=== PATIENT | male | born 1985 | race Caucasian/White ===

== ENCOUNTER 2017-05-27 13:29 | Emergency (ER) | payer MEDICAID ==
[~2017-05-27] VITALS: Ht 177.8 cm; Wt 99.8 kg
[~2017-05-27 13:29] MED LIST: TESTOSTERONE5 G1 MC; [UNRECOGNIZED DRUG - OTHER]; [UNRECOGNIZED DRUG - OTHER]
[2017-05-27 13:47] VITALS: BP 145/85
--- NOTE | 2017-05-27 13:53 | Emergency Room Report ---
History of Present Illness General Chief Complaint: Earache Source: Patient Present Illness HPI The patient is a 32-year-old male presenting with foreign body in the left ear. He states that he was using headphones and a piece of his ear but remained in the left ear. He denies any pain and denies any change in hearing. This occurred yesterday. He has not tried to remove it himself. He denies any other symptoms Allergies: Coded Allergies: NO KNOWN ALLERGIES (Unverified Allergy, Unknown, 10/15/15) Patient History Past Medical History: see triage record Pertinent Family History: none Reviewed Nursing Documentation: PMH: Agreed, PSxH: Agreed Nursing Documentation-PMH Past Medical History: No History, Except For Hx Cardiac Problems: No - HIV Review of Systems All Other Systems: negative except mentioned in HPI Physical Exam Vital Signs Date Time Temp Pulse Resp B/P Pulse Ox O2 Delivery O2 Flow Rate FiO2 05/27/17 13:38 98.1 100 18 145/85 98 Room Air Sp02 EP Interpretation: reviewed, normal General Appearance: no apparent distress, alert, GCS 15, non-toxic Head: normocephalic, atraumatic Eyes: bilateral eye PERRL, bilateral eye normal inspection ENT: normal pharynx, normal voice, uvula midline, other - L ear there is a rabago , soft earbud cover in the external EAC. Visible without otoscope Neck: full range of motion, supple/symm/no masses Respiratory: chest non-tender, lungs clear, normal breath sounds, speaking full sentences Musculoskeletal: back normal, gait/station normal, normal range of motion, non- tender Neurologic: alert, oriented x3, responsive, motor strength/tone normal, sensory intact, speech normal Psychiatric: judgement/insight normal, memory normal, mood/affect normal, no suicidal/homicidal ideation Skin: normal color, no rash, warm/dry, well hydrated Lymphatic: no adenopathy Medical Decision Making PA Attestation Dr. Peoples is my supervising physician. Patient management was discussed with my supervising physician Diagnostic Impression: Primary Impression: Foreign body of ear, left Qualified Codes: T16.2XXA - Foreign body in left ear, initial encounter ER Course The patient is a 32-year-old male presenting with foreign body in the left ear Differential diagnosis include but not limited to otitis externa, otitis media, mastoiditis, sinusitis, pharyngitis, foreign body, TM perforation, among others PE: NAD There is a posada, soft earbud cover in the left external auditory canal. visible without otoscope. Tweezers used to remove the FB in one attempt. No complications. Upon re- evaluation, EAC has no abrasions. No bleeding. TM intact. No erythema or bulging. The patient is discharged home and will follow up with primary doctor Last Vital Signs Date Time Temp Pulse Resp B/P Pulse Ox O2 Delivery O2 Flow Rate FiO2 05/27/17 13:47 98.1 81 18 145/85 98 Room Air Status: improved Disposition: HOME, SELF-CARE Condition: Improved Patient Instructions: Ear Foreign Body Additional Instructions: I discussed my findings with the patient. All questions and concerns have been answered. Treatment and medication compliance have been addressed. I advised the patient that they need to follow up with PMD in 3-5 days. Return to ED if symptoms worsen, new symptoms arise, or if needed for any reason. Patient verbalized understanding of discharge instructions. MEGAN TONY May 27, 2017 13:53
== END 2017-05-27 14:10 | disposition home or self-care (01) ==
LOC: EMR 13:45
DX: T16.2XXA Foreign body in left ear, initial encounter (principal); X58.XXXA Exposure to other specified factors, initial encounter; Y92.89 Other specified places as the place of occurrence of the external cause
CPT/HCPCS: 10120

== ENCOUNTER 2017-06-04 06:48 | Emergency (ER) | payer MEDICAID ==
[~2017-06-04] VITALS: Ht 172.7 cm; Wt 81.6 kg
[2017-06-04] MEDS ORDERED: Bacitracin Oint UD TOPIC ONE (07:00)
--- NOTE | 2017-06-04 07:04 | Emergency Room Report ---
History of Present Illness General Chief Complaint: Lower Extremity Injury Source: Patient Present Illness HPI Patient is a 32-year-old male who presented after increased the foot pain. The patient gradual onset of symptoms. Patient states that he had been walking for long time and subsequently began having pain to his feet. Patient gradual onset of symptoms. Patient had noted some blistering to the bottom of his feet. He denies any fever. He denies any recent trauma. Allergies: Coded Allergies: NO KNOWN ALLERGIES (Unverified Allergy, Unknown, 10/15/15) Patient History Past Medical History: see triage record Reviewed Nursing Documentation: PMH: Agreed, PSxH: Agreed Nursing Documentation-PMH Hx Cardiac Problems: No - HIV Review of Systems All Other Systems: negative except mentioned in HPI Physical Exam Vital Signs Date Time Temp Pulse Resp B/P Pulse Ox O2 Delivery O2 Flow Rate FiO2 06/04/17 06:54 98.1 80 16 126/70 99 Room Air General Appearance: well appearing, no apparent distress, alert, GCS 15 Head: normocephalic, atraumatic ENT: hearing grossly normal, normal voice Neck: full range of motion, supple Respiratory: no respiratory distress, speaking full sentences Musculoskeletal: normal inspection, back normal, no calf tenderness Neurologic: normal inspection, alert, oriented x3, responsive, resident programs assistant III-XII nml as tested, normal gait Psychiatric: mood/affect normal Skin: other - blistering to feet right greater than left, no surrounding erythema Medical Decision Making Diagnostic Impression: Primary Impression: Blister of foot, right Additional Impression: UTI (urinary tract infection) ER Course Patient presented for foot pain. Differential diagnosis included wasn't limited to blister, trench foot, cellulitis, necrotizing fasciitis among others. Patient's benign exam and does not appear to require any further imaging or laboratory testing at this time.The patient's blisters were dressed with antibiotic ointment. Sterile dressings are applied. Patient was advised to recheck with primary care physician next 2-3 days.Patient is given prescription for Keflex for urinary tract infection Last Vital Signs Date Time Temp Pulse Resp B/P Pulse Ox O2 Delivery O2 Flow Rate FiO2 06/04/17 06:54 98.1 80 16 126/70 99 Room Air Status: improved Disposition: HOME, SELF-CARE Condition: Stable Scripts Cephalexin* (KEFLEX*) 500 Mg Capsule 500 MG ORAL Q6H, #28 CAP 0 Refills Prov: Joel Grandaos 06/04/17 Bacitracin Zinc* (BACITRACIN ZINC*) 1 Each Packet 1 APPLIC TOPIC THREE TIMES A DAY, #30 PACKET Prov: Joel Granados 06/04/17 Joel Granados Jun 04, 2017 07:04
[2017-06-04] MEDS ORDERED: BACITRACIN ZIN1 EACH TOPIC (07:15)
[2017-06-04 08:02] LABS: KETONES,URINE 4+ (NEGATIVE); LEUKOCYTE ESTERASE ,URINE 1+ (NEGATIVE); NITRITE,URINE NEGATIVE (NEGATIVE); PH,URINE 6.5 (4.5-8.0); PROTEIN,URINE 2+ (NEGATIVE); UROBILINOGEN,URINE 1 MG/DL (0.0-1.0)
[2017-06-04 08:03] LABS: APPEARANCE,URINE SLIGHTLY CLOUDY
[2017-06-04 08:17] LABS: BACTERIA,URINE FEW /HPF; MUCUS,URINE MODERATE /LPF (NONE/OCC); RBC,URINE 0-2 /HPF (0 - 0); SQUAMOUS EPITHELIAL CELL,UR OCCASIONAL /LPF (NONE/OCC)
[2017-06-04 08:18] LABS: ICTOTEST NEGATIVE
[2017-06-04] MEDS ORDERED: KEFLEX500 MG ORAL (08:21)
[2017-06-04 08:26] VITALS: BP 140/83
[2017-06-04] MEDS ORDERED: GENVOYA TABLET1 EACH PO (18:26)
[2017-06-04] MEDS ORDERED: CELEXA20 MG ORAL (18:26)
[2017-06-04] MEDS ORDERED: TRILEPTAL600 MG PO (18:26)
[2017-06-04] MEDS ORDERED: RISPERDAL2 MG ORAL (18:26)
[2017-06-05] MEDS ORDERED: CYANOCOBALAMIN (08:24)
[2017-06-05] MEDS ORDERED: ANASTROZOLE1 GM (08:24)
[2017-06-05] MEDS ORDERED: OXCARBAZEPINE (08:24)
[2017-06-05] MEDS ORDERED: FLUOXETINE HCL25 G1 MISC (08:24)
[2017-06-05] MEDS ORDERED: RISPERDAL2 MG ORAL (18:15)
== END 2017-06-04 08:26 | disposition home or self-care (01) ==
LOC: EMR 07:05
DX: S90.821A Blister (nonthermal), right foot, initial encounter (principal); Y93.01 Activity, walking, marching and hiking; Y92.9 Unspecified place or not applicable; N39.0 Urinary tract infection, site not specified
CPT/HCPCS: 81003; 99284; 99285

== ENCOUNTER 2017-06-04 17:02 | Emergency (ER) | payer MEDICAID ==
[~2017-06-04] VITALS: Ht 177.8 cm; Wt 95.3 kg
[~2017-06-04 17:02] MED LIST changes: +BACITRACIN ZIN1 EACH TOPIC; +KEFLEX500 MG ORAL
[2017-06-04] MEDS ORDERED: LORazepam Inj 2mg/ml 1ml IM ONE (17:30)
[2017-06-04] MEDS ORDERED: Haloperidol 5mg/ml Inj IM ONE (17:30)
[2017-06-04] MEDS ORDERED: DiphenhydrAMINE 50mg/ml Inj IM ONE (17:30)
[2017-06-04] MEDS ORDERED: LORazepam Inj 2mg/ml 1ml ONE (17:32)
[2017-06-04] MEDS ORDERED: Haloperidol 5mg/ml Inj ONE (17:32)
[2017-06-04] MEDS ORDERED: DiphenhydrAMINE 50mg/ml Inj ONE (17:32)
[2017-06-04 18:00] VITALS: BP 160/112
[2017-06-04] MEDS ORDERED: TRILEPTAL600 MG PO (18:26)
[2017-06-04] MEDS ORDERED: RISPERDAL2 MG ORAL (18:26)
[2017-06-04] MEDS ORDERED: CELEXA20 MG ORAL (18:26)
[2017-06-04] MEDS ORDERED: GENVOYA TABLET1 EACH PO (18:26)
[2017-06-04 18:45] VITALS: BP 143/84
[2017-06-04 18:49] LABS: BASOPHILS % (AUTO) 1.1 % (0.0-2.0); EOSINOPHILS % (AUTO) 0.1 % (0.0-3.0); LYMPHOCYTES % (AUTO) 16.6 % (20.0-45.0); MEAN CORPUSCULAR HEMOGLOBIN 31.9 PG (27.0-31.0); MEAN CORPUSCULAR HGB CONC 37.4 G/DL (32.0-36.0); MEAN CORPUSCULAR VOLUME 85 FL (80-99); MONOCYTES % (AUTO) 9.5 % (1.0-10.0); NEUTROPHILS % (AUTO) 72.7 % (45.0-75.0); PLATELET COUNT 174 K/UL (150-450); RED BLOOD COUNT 3.86 M/UL (4.70-6.10); RED CELL DISTRIBUTION WIDTH 11.6 % (11.6-14.8); WHITE BLOOD COUNT 5.4 K/UL (4.8-10.8)
[2017-06-04 18:59] LABS: ACETAMINOPHEN < 10 ug/mL (10-30); ALANINE AMINOTRANSFERASE 30 U/L (3-41); ALBUMIN/GLOBULIN RATIO 1.2 (1.0-2.7); ALCOHOL < 10 mg/dL; ANION GAP 15 (5-15); ASPARTATE AMINO TRANSFERASE 66 U/L (5-40); CALCIUM 9.1 mg/dL (8.6-10.2); CARBON DIOXIDE 24 mEQ/L (20-30); CHLORIDE 100 mEQ/L (98-107); GLOMERULAR FILTRATION RATE > 60 mL/min (>60); HEMOLYSIS 2; POTASSIUM 3.2 mEQ/L (3.4-4.9); SODIUM 139 mEQ/L (135-145); TOTAL PROTEIN 7.8 g/dL (6.6-8.7)
--- NOTE | 2017-06-04 20:40 | Emergency Room Report ---
History of Present Illness General Chief Complaint: Behavioral Complaint Source: EMS (MEGAN TONY) Present Illness HPI The patient is a 32-year-old male brought in by ambulance and accompanied by police officers after acting erratically today. EMS states the patient was running around with a baseball bat and hitting police cars. The patient does not provide any information at this time. The medication list that is accompanying the patient states that the patient has a history of seizure disorders, schizophrenia, and HIV. It is unknown if he has been taking his medications. (MEGAN TONY) Allergies: Coded Allergies: NO KNOWN ALLERGIES (Unverified Allergy, Unknown, 10/15/15) Patient History Past Medical History: see triage record Pertinent Family History: none Reviewed Nursing Documentation: PMH: Agreed, PSxH: Agreed (MEGAN TONY) Nursing Documentation-PMH History Of Psychiatric Problem: Yes (MEGAN TONY) Review of Systems All Other Systems: limited (MEGAN TONY.Abiel) Physical Exam Vital Signs Date Time Temp Pulse Resp B/P Pulse Ox O2 Delivery O2 Flow Rate FiO2 06/04/17 16:58 99.1 118 16 160/112 98 Room Air Sp02 EP Interpretation: reviewed, normal General Appearance: no apparent distress, alert, GCS 15, non-toxic Head: normocephalic, atraumatic Eyes: bilateral eye PERRL, bilateral eye normal inspection ENT: hearing grossly normal, normal pharynx, no angioedema, normal voice Neck: full range of motion, supple/symm/no masses Respiratory: chest non-tender, lungs clear, normal breath sounds, speaking full sentences Cardiovascular #1: regular rate, rhythm, no edema Gastrointestinal: normal bowel sounds, non tender, soft, non-distended, no guarding, no rebound Musculoskeletal: back normal, gait/station normal, normal range of motion, non- tender Neurologic: alert, oriented x3, responsive, motor strength/tone normal, sensory intact, speech normal Psychiatric: anxious, other - Pt is delusional Lymphatic: no adenopathy (MEGAN TONY) Medical Decision Making PA Attestation Dr. Rodriguez is my supervising physician. Patient management was discussed with my supervising physician (MEGAN TONY) Diagnostic Impression: Primary Impression: Behavioral disorder Additional Impression: Psychosis Qualified Codes: F23 - Brief psychotic disorder ER Course Patient signed out to me. He was brought in as a 5150 by police shift commander. He has been cooperative through the night. No psychiatric issue. He is medically clear for psychiatric evaluation. (HERNAN ROBERTS M.D.) Last Vital Signs Date Time Temp Pulse Resp B/P Pulse Ox O2 Delivery O2 Flow Rate FiO2 06/04/17 18:45 110 16 99 Room Air 06/04/17 18:45 98.2 143/84 Status: improved (MEGAN TONY) Disposition: XFER TO PSYCH HOSP/UNIT Condition: Stable Signed Out To: Dr. Roberts (MEGAN TONY) Referrals: NON PHYSICIAN (PCP) MEGAN TONY Jun 04, 2017 20:40 HERNAN ROBERTS M.D. Jun 04, 2017 23:36
[2017-06-04 23:30] VITALS: BP 139/75
[2017-06-04 23:37] VITALS: BP 138/75
[2017-06-05] VITALS (7 sets, daily range): BP systolic 131–140; BP diastolic 75–80
[2017-06-05] MEDS ORDERED: CYANOCOBALAMIN (08:24)
[2017-06-05] MEDS ORDERED: OXCARBAZEPINE (08:24)
[2017-06-05] MEDS ORDERED: ANASTROZOLE1 GM (08:24)
[2017-06-05] MEDS ORDERED: FLUOXETINE HCL25 G1 MISC (08:24)
[2017-06-05] MEDS ORDERED: Haloperidol Decanoate 50mg Inj IM ONE (16:15)
--- NOTE | 2017-06-05 16:18 | Consultation ---
History of Present Illness General Chief Complaint: Behavioral Complaint Present Illness HPI 32 yo male with hx of hiv and psychotic d/o. the pt is on probation for three years. the pt has been noncompliant with meds. the father was at his bedside. the pt is currently on 5150 for dto/ the pt was apparently yelling and saying he is going to kill others. during the eval the pt was calm and his father was providing most of the history. the pt is endorsing paranoid ideation. He agreed to haldol dec. the pt denied si/hi. he denied using drugs. he denied having mental illness. the pts father and family are supportive. they would like to move him back to [place] the pt needs family support and close supervision. he lost his car/ the father is looking to hire a entertainment lawyer and transfer his legal issue. [employer] sxs: irritable mood, persecutory delusion. No depressive or manic sxs. Allergies: Coded Allergies: NO KNOWN ALLERGIES (Unverified Allergy, Unknown, 10/15/15) Medication History Scheduled Bacitracin Zinc* (Bacitracin Zinc*), 1 APPLIC TOPIC THREE TIMES A DAY Cephalexin* (Keflex*), 500 MG ORAL Q6H Citalopram Hydrobromide* (Celexa*), 20 MG ORAL DAILY, (Reported) Elviteg/Maya/Emtric/Tenofo Ala (Genvoya Tablet), 1 EACH PO DAILY, (Reported) Oxcarbazepine* (Trileptal*), 300 MG PO BID, (Reported) Risperidone* (Risperdal*), 3 MG ORAL BID, (Reported) Testosterone (Testosterone), 100 ML MC QWEEK, (Reported) [Glenvoya], DAILY, (Reported) [Proxac], 80 MG DAILY, (Reported) Miscellaneous Medications Anastrozole (Anastrozole), (Reported) Fluoxetine (Fluoxetine Hcl), 25 GM MISC, (Reported) [cyanocolabalamine], (Reported) [oxacarbazepine], (Reported) Patient History History Provided By: Patient, Family Member, Medical Record, PMD Healthcare decision maker Resuscitation status Advanced Directive on File Past Medical/Surgical History Past Medical/Surgical History: (1) Acute appendicitis (2) Behavioral change (3) Foreign body of ear, left (4) UTI (urinary tract infection) (5) Blister of foot, right (6) Psychosis (7) Behavioral disorder Review of Systems Psychiatric: Reports: see HPI, prior hx, emotional problems Physical Exam General Appearance: no apparent distress, alert Neurologic: alert, oriented x 3, responsive, depressed affect Last 24 Hour Vital Signs Date Time Temp Pulse Resp B/P (MAP) Pulse Ox O2 Delivery O2 Flow Rate FiO2 06/05/17 12:00 98.0 86 17 131/76 99 Room Air 06/05/17 10:17 97.8 89 16 135/77 97 Room Air 06/05/17 10:16 97.8 06/05/17 07:39 97.8 98 17 139/78 97 Room Air 06/05/17 05:30 97.9 98 18 139/78 99 Room Air 06/05/17 03:30 98.0 95 14 135/75 97 Room Air 06/05/17 01:30 98.0 101 15 140/80 98 Room Air 06/04/17 23:30 98.1 102 18 139/75 99 Room Air 06/04/17 18:45 110 16 99 Room Air 06/04/17 18:45 98.2 110 16 143/84 99 Room Air 06/04/17 18:00 118 16 98 Room Air 06/04/17 16:58 99.1 118 16 160/112 98 Room Air Laboratory Tests Test 06/04/17 18:27 06/04/17 19:23 White Blood Count 5.4 K/UL (4.8-10.8) Red Blood Count 3.86 M/UL (4.70-6.10) L Hemoglobin 12.3 G/DL (14.2-18.0) L Hematocrit 32.9 % (42.0-52.0) L Mean Corpuscular Volume 85 FL (80-99) Mean Corpuscular Hemoglobin 31.9 PG (27.0-31.0) H Mean Corpuscular Hemoglobin Concent 37.4 G/DL (32.0-36.0) H Red Cell Distribution Width 11.6 % (11.6-14.8) Platelet Count 174 K/UL (150-450) Mean Platelet Volume 9.0 FL (6.5-10.1) Neutrophils (%) (Auto) 72.7 % (45.0-75.0) Lymphocytes (%) (Auto) 16.6 % (20.0-45.0) L Monocytes (%) (Auto) 9.5 % (1.0-10.0) Eosinophils (%) (Auto) 0.1 % (0.0-3.0) Basophils (%) (Auto) 1.1 % (0.0-2.0) Sodium Level 139 mEQ/L (135-145) Potassium Level 3.2 mEQ/L (3.4-4.9) L Chloride Level 100 mEQ/L (98-107) Carbon Dioxide Level 24 mEQ/L (20-30) Anion Gap 15 (5-15) Blood Urea Nitrogen 16 mg/dL (7-23) Creatinine 1.0 mg/dL (0.7-1.2) Estimat Glomerular Filtration Rate > 60 mL/min (>60) Glucose Level 151 mg/dL (74-106) H Calcium Level 9.1 mg/dL (8.6-10.2) Total Bilirubin 0.6 mg/dL (0.0-1.2) Aspartate Amino Transf (AST/SGOT) 66 U/L (5-40) H Alanine Aminotransferase (ALT/SGPT) 30 U/L (3-41) Alkaline Phosphatase 51 U/L (40-129) Total Protein 7.8 g/dL (6.6-8.7) Albumin 4.3 g/dL (3.5-5.2) Globulin 3.5 g/dL Albumin/Globulin Ratio 1.2 (1.0-2.7) Salicylates Level < 1 mg/dL (10-30) L Acetaminophen Level < 10 ug/mL (10-30) L Serum Alcohol < 10 mg/dL Urine Opiates Screen Negative (NEGATIVE) Urine Barbiturates Screen Negative (NEGATIVE) Phencyclidine (PCP) Screen Negative (NEGATIVE) Urine Amphetamines Screen Negative (NEGATIVE) Urine Benzodiazepines Screen Negative (NEGATIVE) Urine Cocaine Screen Negative (NEGATIVE) Urine Marijuana (THC) Screen Positive (NEGATIVE) H Height (Feet): 5 Height (Inches): 10.00 Weight (Pounds): 210 Assessment/Plan Status: stable Assessment/Plan schizophrenia vs bipolar d/o psychotic fx -haldol dec 25mg IM -risperdal 4mg qhs Tom Rojas M.D. Jun 05, 2017 16:18
[2017-06-05] MEDS ORDERED: fluPHENAZine Decanoate 25mg Inj IM ONE (16:45)
[2017-06-05] MEDS ORDERED: RISPERDAL2 MG ORAL (18:15)
== END 2017-06-05 19:10 | disposition home or self-care (01) ==
LOC: EDBD 17:02 → EMR 18:10
DX: F91.9 Conduct disorder, unspecified (principal); F23 Brief psychotic disorder; F41.9 Anxiety disorder, unspecified; F22 Delusional disorders
CPT/HCPCS: 36415; 80053; 80300; 80329; 85025; 96372; 99285; J1200; J1630; J2680

== ENCOUNTER 2017-07-07 21:01 | Emergency (ER) | payer MEDICAID ==
[~2017-07-07] VITALS: Ht 177.8 cm; Wt 72.6 kg
[~2017-07-07 21:01] MED LIST changes: +ANASTROZOLE1 GM; +CELEXA20 MG ORAL; +CYANOCOBALAMIN; +FLUOXETINE HCL25 G1 MISC; +GENVOYA TABLET1 EACH PO; +OXCARBAZEPINE; +RISPERDAL2 MG ORAL; +TRILEPTAL600 MG PO
[2017-07-07 21:15] VITALS: BP 117/77
--- NOTE | 2017-07-07 21:24 | Emergency Room Report ---
History of Present Illness General Chief Complaint: Abdominal Pain Source: Patient Present Illness HPI Patient presents with abdominal pain vomiting and diarrhea. He thinks he ate something bad today. Yesterday felt well. The diarrhea is been pink in color. He's been drinking coffee to try and calm his stomach. It has been coming back up. He's never had this problem before. He did take some medication but is not telling us what it was. Post appi. H/O HIV - state viral load negative. H/O psychiatric illness (not specific). Denies SI, HI. Mumbling many of his answers but denies most else. Allergies: Coded Allergies: NO KNOWN ALLERGIES (Unverified Allergy, Unknown, 10/15/15) Patient History Past Medical History: see triage record, psych hx, HIV Past Surgical History: appy Social History: Reports: drug use - THC, Denies: alcohol use Social History Narrative at home Reviewed Nursing Documentation: PMH: Agreed, PSxH: Agreed Nursing Documentation-PMH Past Medical History: No Stated History Review of Systems All Other Systems: negative except mentioned in HPI Physical Exam Vital Signs Date Time Temp Pulse Resp B/P (MAP) Pulse Ox O2 Delivery O2 Flow Rate FiO2 07/07/17 21:04 97.3 92 20 151/106 99 Room Air Sp02 EP Interpretation: reviewed, normal General Appearance: well appearing, GCS 15, lethargic, other - RN reports diaphoresis, not present - vomitus withot blood Head: normocephalic Eyes: bilateral eye PERRL, bilateral eye Scleral Injection ENT: moist mucus membranes Neck: supple Respiratory: lungs clear, normal breath sounds Cardiovascular #1: regular rate, rhythm Cardiovascular #2: 2+ radial (R) Gastrointestinal: normal inspection, normal bowel sounds, soft, no mass, non- distended, no guarding, no rebound, tenderness - minimal epigastric Musculoskeletal: back normal, gait/station normal, normal range of motion Neurologic: oriented x3, grossly normal Psychiatric: depressed affect - somewhat lethargic and mumbling words Skin: normal inspection, warm/dry Medical Decision Making Diagnostic Impression: Primary Impression: Abdominal pain Qualified Codes: R10.84 - Generalized abdominal pain ER Course Patient with vomiting and epigastric discomfort without diarrhea. Ddx: GItis, gastritis, food poisoning, adverse reaction to medications, electrolyte abnormality amongst others. Patient without surgical abdominal exam. Some altered mentation. Needs evaluation with labs, abd film. Treatment with IV hydration, zofran and pepcid. Labs with normal WBC, H/H, lytes (glucose slightly elevated). Xray no pathology. Iimproved with hydration and meds. Mariano Po well. patient stable for outpatient observation and treatment Patient with strange affect. Not answer questions directly. Patient purposeful and knows how to get home. (He might have left a dog at ED.) Laboratory Tests Test 07/07/17 21:35 07/07/17 22:40 White Blood Count 7.0 K/UL (4.8-10.8) Red Blood Count 4.26 M/UL (4.70-6.10) L Hemoglobin 13.6 G/DL (14.2-18.0) L Hematocrit 39.6 % (42.0-52.0) L Mean Corpuscular Volume 93 FL (80-99) Mean Corpuscular Hemoglobin 32.0 PG (27.0-31.0) H Mean Corpuscular Hemoglobin Concent 34.5 G/DL (32.0-36.0) Red Cell Distribution Width 14.2 % (11.6-14.8) Platelet Count 239 K/UL (150-450) Mean Platelet Volume 6.5 FL (6.5-10.1) Neutrophils (%) (Auto) 47.4 % (45.0-75.0) Lymphocytes (%) (Auto) 42.8 % (20.0-45.0) Monocytes (%) (Auto) 8.5 % (1.0-10.0) Eosinophils (%) (Auto) 0.3 % (0.0-3.0) Basophils (%) (Auto) 1.0 % (0.0-2.0) Prothrombin Time 9.6 SEC (9.30-11.50) Prothrombin Time INR 0.9 (0.9-1.1) PTT 22 SEC (23-33) L Sodium Level 140 mEQ/L (135-145) Potassium Level 4.0 mEQ/L (3.4-4.9) Chloride Level 100 mEQ/L (98-107) Carbon Dioxide Level 27 mEQ/L (20-30) Anion Gap 13 (5-15) Blood Urea Nitrogen 11 mg/dL (7-23) Creatinine 1.1 mg/dL (0.7-1.2) Estimate Glomerular Filtration Rate > 60 mL/min (>60) Glucose Level 181 mg/dL (74-106) H Calcium Level 8.8 mg/dL (8.6-10.2) Total Bilirubin 0.2 mg/dL (0.0-1.2) Aspartate Amino Transferase (AST) 21 U/L (5-40) Alanine Aminotransferase (ALT) 22 U/L (3-41) Alkaline Phosphatase 82 U/L (40-129) Troponin I < 0.30 ng/mL (<=0.30) Total Protein 7.9 g/dL (6.6-8.7) Albumin 4.3 g/dL (3.5-5.2) Globulin 3.6 g/dL Albumin/Globulin Ratio 1.1 (1.0-2.7) Lipase 30 U/L (< 60) Serum Alcohol < 10 mg/dL Urine Color Pale yellow Urine Appearance Clear Urine pH 6 (4.5-8.0) Urine Specific [place] 1.025 (1.005-1.035) Urine Protein Negative (NEGATIVE) Urine Glucose (UA) Negative (NEGATIVE) Urine Ketones Negative (NEGATIVE) Urine Occult Blood Negative (NEGATIVE) Urine Nitrite Negative (NEGATIVE) Urine Bilirubin Negative (NEGATIVE) Urine Urobilinogen Normal MG/DL (0.0-1.0) Urine Leukocyte Esterase 1+ (NEGATIVE) H Urine RBC 0-2 /HPF (0 - 0) H Urine WBC 0-2 /HPF (0 - 0) Urine Squamous Epithelial Cells None /LPF (NONE/OCC) Urine Bacteria None /HPF (NONE) Urine Opiates Screen Negative (NEGATIVE) Urine Barbiturates Screen Negative (NEGATIVE) Phencyclidine (PCP) Screen Negative (NEGATIVE) Urine Amphetamines Screen Negative (NEGATIVE) Urine Benzodiazepines Screen Negative (NEGATIVE) Urine Cocaine Screen Negative (NEGATIVE) Urine Marijuana (THC) Screen Positive (NEGATIVE) H Other X-Ray Diagnostic Results Other X-Ray Diagnostic Results : X-Ray ordered: Abdomen # of Views/Limited Vs Complete: 1 View Indication: Pain EP Interpretation: Yes Interpretation: nonspecific bowel gas, no sbo, other - No mass Electronically Signed by: Electronically signed by Jose Peoples MD Last Vital Signs Date Time Temp Pulse Resp B/P (MAP) Pulse Ox O2 Delivery O2 Flow Rate FiO2 07/08/17 04:00 97.8 79 16 118/72 100 Room Air Status: improved Disposition: HOME, SELF-CARE Condition: Improved Scripts Acetaminophen (Tylenol) 325 Mg Tablet 650 MG ORAL Q6H Y for Prn Pain/Headache/Temp > 101, #20 TAB 0 Refills Prov: Jose Peoples M.D. 07/08/17 Ondansetron Odt* (ZOFRAN ODT*) 4 Mg Tab.rapdis 4 MG ORAL Q8H Y for Nausea & Vomiting, #6 TAB 1 Refill Prov: Jose Peoples M.D. 07/08/17 Famotidine (PEPCID) 20 Mg Tablet 20 MG ORAL DAILY, #20 TAB 0 Refills Prov: Jose Peoples M.D. 07/08/17 Jose Peoples M.D. Jul 07, 2017 21:24
[2017-07-07] MEDS ORDERED: Famotidine 20 MG/ 2ML VIAL IVP ONE (21:30)
[2017-07-07] MEDS ORDERED: DiphenhydrAMINE 50mg/ml Inj IVP ONE (21:30)
[2017-07-07] MEDS ORDERED: Metoclopramide 10mg/2ml Inj IVP ONE (21:30)
[2017-07-07 21:53] LABS: EOSINOPHILS % (AUTO) 0.3 % (0.0-3.0); LYMPHOCYTES % (AUTO) 42.8 % (20.0-45.0); MEAN CORPUSCULAR HGB CONC 34.5 G/DL (32.0-36.0); MEAN CORPUSCULAR VOLUME 93 FL (80-99); MEAN PLATELET VOLUME 6.5 FL (6.5-10.1); MONOCYTES % (AUTO) 8.5 % (1.0-10.0); NEUTROPHILS % (AUTO) 47.4 % (45.0-75.0); PLATELET COUNT 239 K/UL (150-450); RED BLOOD COUNT 4.26 M/UL (4.70-6.10); RED CELL DISTRIBUTION WIDTH 14.2 % (11.6-14.8)
[2017-07-07 22:03] LABS: INR 0.9 (0.9-1.1); PROTHROMBIN TIME 9.6 SEC (9.30-11.50)
[2017-07-07 22:09] LABS: TROPONIN I < 0.30 ng/mL (<=0.30)
[2017-07-07 22:10] LABS: ALANINE AMINOTRANSFERASE 22 U/L (3-41); ALBUMIN/GLOBULIN RATIO 1.1 (1.0-2.7); ALCOHOL < 10 mg/dL; ANION GAP 13 (5-15); ASPARTATE AMINO TRANSFERASE 21 U/L (5-40); CALCIUM 8.8 mg/dL (8.6-10.2); CARBON DIOXIDE 27 mEQ/L (20-30); CHLORIDE 100 mEQ/L (98-107); CREATININE 1.1 mg/dL (0.7-1.2); GLOMERULAR FILTRATION RATE > 60 mL/min (>60); HEMOLYSIS 5; LIPASE 30 U/L (< 60); SODIUM 140 mEQ/L (135-145); TOTAL PROTEIN 7.9 g/dL (6.6-8.7)
[2017-07-07 22:55] LABS: APPEARANCE,URINE CLEAR; KETONES,URINE NEGATIVE (NEGATIVE); LEUKOCYTE ESTERASE ,URINE 1+ (NEGATIVE); NITRITE,URINE NEGATIVE (NEGATIVE); PH,URINE 6 (4.5-8.0); PROTEIN,URINE NEGATIVE (NEGATIVE); UROBILINOGEN,URINE NORMAL MG/DL (0.0-1.0)
[2017-07-07 23:05] VITALS: BP 120/74
[2017-07-07 23:19] LABS: RBC,URINE 0-2 /HPF (0 - 0); WBC,URINE 0-2 /HPF (0 - 0)
[2017-07-08 01:05] VITALS: BP 125/74
[2017-07-08 03:40] VITALS: BP 118/72
[2017-07-08] MEDS ORDERED: TYLENOL325 MG ORAL (03:40)
[2017-07-08] MEDS ORDERED: ZOFRAN ODT4 MG ORAL (03:40)
[2017-07-08] MEDS ORDERED: PEPCID20 MG ORAL (03:40)
[2017-07-08 04:00] VITALS: BP 118/72
--- NOTE | 2017-07-08 11:17 | Diagnostic Imaging Report ---
Indication: Abdominal pain Technique: Supine view of the abdomen Comparison: none Findings: Bowel gas pattern is unremarkable. No unusual masses or calcifications. Impression: No acute process This agrees with the preliminary interpretation provided by the emergency room physician
== END 2017-07-08 04:00 | disposition home or self-care (01) ==
LOC: EDBD 21:01 → EDUNIT# 21:01 → EMR 22:00
DX: R10.13 Epigastric pain (principal); R11.10 Vomiting, unspecified; R19.7 Diarrhea, unspecified; F12.90 Cannabis use, unspecified, uncomplicated
CPT/HCPCS: 36415; 74000; 80053; 80300; 80329; 81003; 83690; 84484; 85025; 85610; 85730; 96361; 96374; 96375; 99284; J1200; J2765; S0028

== ENCOUNTER 2017-12-09 17:10 | Emergency (ER) | payer MEDICAID ==
[~2017-12-09] VITALS: Ht 172.7 cm; Wt 102.1 kg
[~2017-12-09 17:10] MED LIST changes: +PEPCID20 MG ORAL; +TYLENOL325 MG ORAL; +ZOFRAN ODT4 MG ORAL
[2017-12-09 17:15] VITALS: BP 139/100
[2017-12-09] MEDS ORDERED: DEPAKOTE500 MG PO (17:43)
[2017-12-09] MEDS ORDERED: TRAZODONE HCL50 MG ORAL (17:43)
[2017-12-09] MEDS ORDERED: LORazepam Inj 2mg/ml 1ml IV ONE (17:45)
[2017-12-09 18:21] LABS: BASOPHILS % (AUTO) 0.9 % (0.0-2.0); HEMATOCRIT 40.7 % (42.0-52.0); HEMOGLOBIN 14.1 G/DL (14.2-18.0); MEAN CORPUSCULAR VOLUME 87 FL (80-99); MONOCYTES % (AUTO) 11.3 % (1.0-10.0); NEUTROPHILS % (AUTO) 65.7 % (45.0-75.0); PLATELET COUNT 189 K/UL (150-450); RED BLOOD COUNT 4.65 M/UL (4.70-6.10); WHITE BLOOD COUNT 7.3 K/UL (4.8-10.8)
[2017-12-09 18:31] LABS: ANION GAP 14 mmol/L (5-15); BLOOD UREA NITROGEN 12 mg/dL (7-18); CALCIUM 9.2 MG/DL (8.5-10.1); CARBON DIOXIDE 24 MMOL/L (21-32); CHLORIDE 99 MMOL/L (98-107); CREATININE 0.8 MG/DL (0.55-1.30); POTASSIUM 3.4 MMOL/L (3.5-5.1); SODIUM 137 MMOL/L (136-145)
[2017-12-09 18:35] LABS: ALANINE AMINOTRANSFERASE 27 U/L (12-78); ALBUMIN/GLOBULIN RATIO 0.8 (1.0-2.7); ALKALINE PHOSPHATASE 71 U/L (46-116); ASPARTATE AMINO TRANSFERASE 27 U/L (15-37); BILIRUBIN,TOTAL 0.5 MG/DL (0.2-1.0)
[2017-12-09 18:38] VITALS: BP 135/92
[2017-12-09 19:08] LABS: APPEARANCE,URINE CLEAR; BILIRUBIN, URINE NEGATIVE (NEGATIVE); COLOR,URINE YELLOW; GLUCOSE, URINE (UA) NEGATIVE (NEGATIVE); KETONES,URINE 4+ (NEGATIVE); LEUKOCYTE ESTERASE ,URINE 1+ (NEGATIVE); NITRITE,URINE NEGATIVE (NEGATIVE); PH,URINE 6 (4.5-8.0); PROTEIN,URINE 1+ (NEGATIVE); UROBILINOGEN,URINE 1 MG/DL (0.0-1.0)
--- NOTE | 2017-12-09 21:19 | Emergency Room Report ---
History of Present Illness General Chief Complaint: General Complaint Source: Patient Present Illness HPI 32-year-old male presents ED for evaluation. Patient brought in by EMS stating that he ingested a small amount of bleach today. Also injected bleach into his buttocks. States he did because he is depressed. History of depression. Is currently taking Depakote and trazodone. States he does not feel safe at home. rack worker is with patient at bedside. Is concerned about the patient. Does not believe it is safe for patient be discharged. Denies alcohol or drug use. Denies chest pain or shortness of breath. Denies nausea or vomiting. No other aggravating relieving factors. Denies any other associated symptoms Allergies: Coded Allergies: NO KNOWN ALLERGIES (Unverified Allergy, Unknown, 10/15/15) Patient History Past Medical History: psych hx Past Surgical History: none Pertinent Family History: none Social History: Denies: smoking, alcohol use, drug use Immunizations: UTD Reviewed Nursing Documentation: PMH: Agreed, PSxH: Agreed Nursing Documentation-PMH Hx Cardiac Problems: No - HIV History Of Psychiatric Problem: Yes - depression Review of Systems All Other Systems: negative except mentioned in HPI Physical Exam Vital Signs Date Time Temp Pulse Resp B/P (MAP) Pulse Ox O2 Delivery O2 Flow Rate FiO2 12/09/17 17:06 99.0 130 16 140/90 98 Room Air 99.0 Sp02 EP Interpretation: reviewed, normal General Appearance: no apparent distress, alert, GCS 15, non-toxic Head: normocephalic, atraumatic Eyes: bilateral eye normal inspection, bilateral eye PERRL ENT: hearing grossly normal, normal pharynx, no angioedema, normal voice Neck: full range of motion, supple/symm/no masses Respiratory: chest non-tender, lungs clear, normal breath sounds, speaking full sentences Cardiovascular #1: regular rate, rhythm, no edema Cardiovascular #2: 2+ carotid (R), 2+ carotid (L), 2+ radial (R), 2+ radial (L) , 2+ dorsalis pedis (R), 2+ dorsalis pedis (L) Gastrointestinal: normal bowel sounds, non tender, soft, non-distended, no guarding, no rebound Rectal: deferred Genitourinary: normal inspection, no CVA tenderness Musculoskeletal: back normal, gait/station normal, normal range of motion, non- tender Neurologic: alert, oriented x3, responsive, motor strength/tone normal, sensory intact, speech normal Psychiatric: judgement/insight normal, memory normal, depressed affect, anxious Reflexes: 3+ bicep (R), 3+ bicep (L), 3+ tricep (R), 3+ tricep (L), 3+ knee (R) , 3+ knee (L) Skin: normal color, no rash, warm/dry, well hydrated Lymphatic: no adenopathy Medical Decision Making Diagnostic Impression: Primary Impression: Suicidal ideation Additional Impression: Behavioral change ER Course Hospital Course 32-year-old male presents to ED for suicidal ideation. ingested bleach today Differential diagnoses include: Major depressive disorder, unspecified psychosis , EtOH abuse, drug abuse Clinical course Patient placed on stretcher. On one to one observation. After initial history and physical I ordered labs, U. tox Labs-electrolytes normal, aspirin/Tylenol levels normal, EtOH level normal, U. tox +THC bulbs farmworker at bedside states she does not believe patient is safe to be discharged. Is asking if we can place patient on 5150 hold. Patient is tearful with poor eye contact. Patient is medically cleared and pending psychiatric evaluation. i. I feel this is a highly complex case requiring extensive working including EKG/Rhythm strip, Xray/CT/US, Blood/urine lab work, repeat exams while in ED, and administration of strong opiates/narcotics for pain control, admission to hospital or close patient follow up. Labs Test 12/09/17 18:04 12/09/17 18:30 White Blood Count 7.3 K/UL (4.8-10.8) Red Blood Count 4.65 M/UL (4.70-6.10) Hemoglobin 14.1 G/DL (14.2-18.0) Hematocrit 40.7 % (42.0-52.0) Mean Corpuscular Volume 87 FL (80-99) Mean Corpuscular Hemoglobin 30.3 PG (27.0-31.0) Mean Corpuscular Hemoglobin Concent 34.6 G/DL (32.0-36.0) Red Cell Distribution Width 12.0 % (11.6-14.8) Platelet Count 189 K/UL (150-450) Mean Platelet Volume 6.8 FL (6.5-10.1) Neutrophils (%) (Auto) 65.7 % (45.0-75.0) Lymphocytes (%) (Auto) 22.0 % (20.0-45.0) Monocytes (%) (Auto) 11.3 % (1.0-10.0) Eosinophils (%) (Auto) 0.0 % (0.0-3.0) Basophils (%) (Auto) 0.9 % (0.0-2.0) Sodium Level 137 MMOL/L (136-145) Potassium Level 3.4 MMOL/L (3.5-5.1) Chloride Level 99 MMOL/L (98-107) Carbon Dioxide Level 24 MMOL/L (21-32) Anion Gap 14 mmol/L (5-15) Blood Urea Nitrogen 12 mg/dL (7-18) Creatinine 0.8 MG/DL (0.55-1.30) Estimat Glomerular Filtration Rate > 60 mL/min (>60) Glucose Level 95 MG/DL (74-106) Calcium Level 9.2 MG/DL (8.5-10.1) Total Bilirubin 0.5 MG/DL (0.2-1.0) Aspartate Amino Transf (AST/SGOT) 27 U/L (15-37) Alanine Aminotransferase (ALT/SGPT) 27 U/L (12-78) Alkaline Phosphatase 71 U/L (46-116) Total Protein 8.9 G/DL (6.4-8.2) Albumin 4.0 G/DL (3.4-5.0) Globulin 4.9 g/dL Albumin/Globulin Ratio 0.8 (1.0-2.7) Salicylates Level 3.3 ug/mL (2.8-20) Acetaminophen Level < 2 MCG/ML (10-30) Valproic Acid (Depakene) Level 9 MCG/ML (50-100) Serum Alcohol < 3 mg/dL Urine Color Yellow Urine Appearance Clear Urine pH 6 (4.5-8.0) Urine Specific Duson 1.025 (1.005-1.035) Urine Protein 1+ (NEGATIVE) Urine Glucose (UA) Negative (NEGATIVE) Urine Ketones 4+ (NEGATIVE) Urine Occult Blood Negative (NEGATIVE) Urine Nitrite Negative (NEGATIVE) Urine Bilirubin Negative (NEGATIVE) Urine Urobilinogen 1 MG/DL (0.0-1.0) Urine Leukocyte Esterase 1+ (NEGATIVE) Urine RBC 0-2 /HPF (0 - 0) Urine WBC 2-4 /HPF (0 - 0) Urine Squamous Epithelial Cells None /LPF (NONE/OCC) Urine Bacteria Few /HPF (NONE) Urine Opiates Screen Negative (NEGATIVE) Urine Barbiturates Screen Negative (NEGATIVE) Phencyclidine (PCP) Screen Negative (NEGATIVE) Urine Amphetamines Screen Negative (NEGATIVE) Urine Benzodiazepines Screen Negative (NEGATIVE) Urine Cocaine Screen Negative (NEGATIVE) Urine Marijuana (THC) Screen Positive (NEGATIVE) Last Vital Signs Date Time Temp Pulse Resp B/P (MAP) Pulse Ox O2 Delivery O2 Flow Rate FiO2 12/09/17 18:38 99.0 123 18 135/92 95 Room Air 99.0 Status: improved Disposition: XFER TO PSYCH HOSP/UNIT Condition: Serious Referrals: NON PHYSICIAN (PCP) ALETA ESPITIA M.D. Dec 09, 2017 21:19
[2017-12-09 22:00] VITALS: BP 112/95
[2017-12-10] VITALS (9 sets, daily range): BP systolic 110–152; BP diastolic 67–99
[2017-12-10] MEDS ORDERED: Depakote 500mg tab ORAL ONE (14:15)
[2017-12-10] MEDS ORDERED: Acetaminophen 500mg (ES) tab ORAL ONE (16:00)
== END 2017-12-10 20:35 ==
LOC: EDBD 17:10 → EMR 19:32
DX: T14.91XA Suicide attempt, initial encounter (principal); X83.8XXA Intentional self-harm by other specified means, initial encounter; Y92.9 Unspecified place or not applicable; F91.9 Conduct disorder, unspecified; F32.9 Major depressive disorder, single episode, unspecified
CPT/HCPCS: 36415; 80053; 80164; 80307; 80329; 81003; 85025; 96374; 96375; 99285; J8499

== ENCOUNTER 2018-01-16 12:34 | Inpatient (IN) | payer MEDICAID ==
[~2018-01-16] VITALS: Ht 180.3 cm; Wt 108.9 kg
[~2018-01-16 12:34] MED LIST changes: +DEPAKOTE500 MG PO; +TRAZODONE HCL50 MG ORAL
[2018-01-16] MEDS ORDERED: Pantoprazole Inj IVP ONE (12:45)
[2018-01-16 13:30] LABS: BASOPHILS % (AUTO) 0.5 % (0.0-2.0); EOSINOPHILS % (AUTO) 0.1 % (0.0-3.0); HEMATOCRIT 43.5 % (42.0-52.0); HEMOGLOBIN 14.6 G/DL (14.2-18.0); LYMPHOCYTES % (AUTO) 34.8 % (20.0-45.0); MEAN CORPUSCULAR VOLUME 88 FL (80-99); MONOCYTES % (AUTO) 10.2 % (1.0-10.0); NEUTROPHILS % (AUTO) 54.5 % (45.0-75.0); PLATELET COUNT 171 K/UL (150-450); RED BLOOD COUNT 4.96 M/UL (4.70-6.10); WHITE BLOOD COUNT 4.1 K/UL (4.8-10.8)
[2018-01-16 13:35] LABS: ANION GAP 11 mmol/L (5-15); BLOOD UREA NITROGEN 12 mg/dL (7-18); CALCIUM 8.6 MG/DL (8.5-10.1); CARBON DIOXIDE 24 MMOL/L (21-32); CHLORIDE 101 MMOL/L (98-107); CREATININE 1.3 MG/DL (0.55-1.30); SODIUM 136 MMOL/L (136-145)
[2018-01-16 13:39] LABS: ALANINE AMINOTRANSFERASE 51 U/L (12-78); ALBUMIN 3.9 G/DL (3.4-5.0); ALBUMIN/GLOBULIN RATIO 0.8 (1.0-2.7); ALKALINE PHOSPHATASE 93 U/L (46-116); ASPARTATE AMINO TRANSFERASE 31 U/L (15-37); BILIRUBIN,TOTAL 0.4 MG/DL (0.2-1.0)
[2018-01-16] MEDS ORDERED: Haloperidol 5mg/ml Inj IM ONE (13:45)
[2018-01-16 13:57] VITALS: BP 121/82
--- NOTE | 2018-01-16 14:02 | Emergency Room Report ---
History of Present Illness General Chief Complaint: Gastrointestinal Bleed Source: Patient, EMS Present Illness HPI Patient is a 32-year-old male who presented after increased reported hematemesis. Patient reportedly had been increased vomiting. The patient was having worsening headache. He reports having a moderate amount of blood in his emesis. Patient prior history of psychiatric disease. He denies any abdominal pain. Allergies: Coded Allergies: NO KNOWN ALLERGIES (Unverified Allergy, Unknown, 10/15/15) Patient History Reviewed Nursing Documentation: PMH: Agreed; PSxH: Agreed Nursing Documentation-PMH Past Medical History: No History, Except For Hx Cardiac Problems: No - HIV History Of Psychiatric Problem: Yes - BIPOLAR Review of Systems All Other Systems: limited Physical Exam Vital Signs Date Time Temp Pulse Resp B/P (MAP) Pulse Ox O2 Delivery O2 Flow Rate FiO2 01/16/18 12:26 98.5 140 20 113/77 95 Room Air 98.4 Sp02 EP Interpretation: reviewed, normal General Appearance: normal inspection, well appearing, no apparent distress, alert, GCS 15 Head: atraumatic ENT: normal ENT inspection, hearing grossly normal, normal voice Neck: normal inspection, full range of motion, supple, no bony tend Respiratory: normal inspection, lungs clear, normal breath sounds, no respiratory distress, no retraction, no wheezing Cardiovascular #1: regular rate, rhythm, no edema Gastrointestinal: normal inspection, normal bowel sounds, non tender, soft, no guarding, no hernia Genitourinary: no CVA tenderness Musculoskeletal: normal inspection, back normal, normal range of motion Neurologic: normal inspection, alert, oriented x3, responsive, blind lacer III-XII nml as tested, speech normal Psychiatric: normal inspection, judgement/insight normal, mood/affect normal Skin: normal inspection, normal color, no rash Medical Decision Making Diagnostic Impression: Primary Impression: Abdominal pain Additional Impression: Gastritis ER Course Patient presented for abdominal pain. Differential diagnoses included ischemic bowel, appendicitis, perforated viscus, abdominal aortic aneurysm, inferior myocardial infarction, viral gastroenteritis. Because of complexity of patient' s case laboratory testing and imaging studies were ordered. The patient was given medications for headache as well as for nausea and vomiting.Patient was given IV fluids as well as IV Protonix. Dr. Ledezma was contacted for inpatient management due to complexity of medical condition. CT the head read by radiology showed no evidence of acute intracranial hemorrhage.Initial laboratory testing had adequate hemoglobin. Labs Test 01/16/18 11:13 01/16/18 13:00 Urine Opiates Screen Negative (NEGATIVE) Urine Barbiturates Screen Negative (NEGATIVE) Phencyclidine (PCP) Screen Negative (NEGATIVE) Urine Amphetamines Screen Negative (NEGATIVE) Urine Benzodiazepines Screen Negative (NEGATIVE) Urine Cocaine Screen Negative (NEGATIVE) Urine Marijuana (THC) Screen Positive (NEGATIVE) White Blood Count 4.1 K/UL (4.8-10.8) Red Blood Count 4.96 M/UL (4.70-6.10) Hemoglobin 14.6 G/DL (14.2-18.0) Hematocrit 43.5 % (42.0-52.0) Mean Corpuscular Volume 88 FL (80-99) Mean Corpuscular Hemoglobin 29.4 PG (27.0-31.0) Mean Corpuscular Hemoglobin Concent 33.5 G/DL (32.0-36.0) Red Cell Distribution Width 12.0 % (11.6-14.8) Platelet Count 171 K/UL (150-450) Mean Platelet Volume 6.9 FL (6.5-10.1) Neutrophils (%) (Auto) 54.5 % (45.0-75.0) Lymphocytes (%) (Auto) 34.8 % (20.0-45.0) Monocytes (%) (Auto) 10.2 % (1.0-10.0) Eosinophils (%) (Auto) 0.1 % (0.0-3.0) Basophils (%) (Auto) 0.5 % (0.0-2.0) Prothrombin Time 10.1 SEC (9.30-11.50) Prothromb Time International Ratio 1.0 (0.9-1.1) Activated Partial Thromboplast Time 27 SEC (23-33) Sodium Level 136 MMOL/L (136-145) Potassium Level 4.0 MMOL/L (3.5-5.1) Chloride Level 101 MMOL/L (98-107) Carbon Dioxide Level 24 MMOL/L (21-32) Anion Gap 11 mmol/L (5-15) Blood Urea Nitrogen 12 mg/dL (7-18) Creatinine 1.3 MG/DL (0.55-1.30) Estimat Glomerular Filtration Rate > 60 mL/min (>60) Glucose Level 122 MG/DL (74-106) Calcium Level 8.6 MG/DL (8.5-10.1) Total Bilirubin 0.4 MG/DL (0.2-1.0) Aspartate Amino Transf (AST/SGOT) 31 U/L (15-37) Alanine Aminotransferase (ALT/SGPT) 51 U/L (12-78) Alkaline Phosphatase 93 U/L (46-116) Troponin I 0.000 ng/mL (0.000-0.056) Total Protein 8.9 G/DL (6.4-8.2) Albumin 3.9 G/DL (3.4-5.0) Globulin 5.0 g/dL Albumin/Globulin Ratio 0.8 (1.0-2.7) Serum Alcohol 5 mg/dL EKG Diagnostic Results Rate: normal Rhythm: NSR ST Segments: no acute changes Last Vital Signs Date Time Temp Pulse Resp B/P (MAP) Pulse Ox O2 Delivery O2 Flow Rate FiO2 01/16/18 12:26 98.5 140 20 113/77 95 Room Air 98.4 Status: unchanged Disposition: ADMITTED INPATIENT Condition: Serious Referrals: [facility],REFERR[facility] (PCP) Joel Granados Jan 16, 2018 14:02
--- NOTE | 2018-01-16 14:22 | Diagnostic Imaging Report ---
Indication: Headache Technique: Continuous helical CT scanning of the head was performed utilizing automated exposure control without intravenous contrast material. Axial and coronal reconstructions were obtained. Comparison: None CT dose: Total DLP 1530.91 mGycm; CTDI vol 70.38 mGy Findings: There is no acute intracranial hemorrhage, mass effect or cortical edema. The ventricles, cisterns and sulci are within normal limits. The posterior fossa and fourth ventricle are unremarkable. Sellar and suprasellar regions are grossly unremarkable. Visualized mastoid air cells and paranasal sinuses are unremarkable. No focal lesions of the bony calvarium or soft tissues of the scalp are seen. IMPRESSION: No evidence of acute intracranial hemorrhage, mass effect or cortical edema. MRI may be obtained for more sensitive evaluation as clinically indicated. The CT scanner at [facility] is accredited by the [employer] and the scans are performed using protocols designed to limit radiation exposure to as low as reasonably achievable to attain images of sufficient resolution adequate for diagnostic evaluation.
[2018-01-16] MEDS ORDERED: Morphine Sulfate 4mg/ml Inj IVP ONE (15:15)
[2018-01-16] MEDS ORDERED: Sodium Bicarbonate 50ml Carp IV ONE (15:45)
[2018-01-16] MEDS ORDERED: Heparin 2000 units/Ns 1000ml IV ONE (15:45)
--- NOTE | 2018-01-16 16:28 | Consultation ---
History of Present Illness General Date patient seen: Jan 17, 2018 Chief Complaint: Gastrointestinal Bleed Present Illness HPI 32-year-old male with psychiatric disorder, HIV presented to ER with CC of reported hematemesis. Patient reportedly had been increased vomiting. The patient was having worsening headache. He reports having a moderate amount of blood in his emesis. Allergies: Coded Allergies: NO KNOWN ALLERGIES (Unverified Allergy, Unknown, 10/15/15) Medication History Scheduled Bacitracin Zinc* (Bacitracin Zinc*), 1 APPLIC TOPIC THREE TIMES A DAY Cephalexin* (Keflex*), 500 MG ORAL Q6H Citalopram Hydrobromide* (Celexa*), 20 MG ORAL DAILY, (Reported) Divalproex Sodium (Depakote), 500 MG PO BID, (Reported) Elviteg/Maya/Emtric/Tenofo Ala (Genvoya Tablet), 1 EACH PO DAILY, (Reported) Famotidine (Pepcid), 20 MG ORAL DAILY Oxcarbazepine* (Trileptal*), 300 MG PO BID, (Reported) Risperidone* (Risperdal*), 3 MG ORAL BID, (Reported) Risperidone* (Risperdal*), 4 MG ORAL QHS Testosterone (Testosterone), 100 ML MC QWEEK, (Reported) Trazodone Hcl* (Desyrel*), 50 MG ORAL BEDTIME, (Reported) [Glenvoya], DAILY, (Reported) [Proxac], 80 MG DAILY, (Reported) Scheduled PRN Acetaminophen (Tylenol), 650 MG ORAL Q6H PRN for Prn Pain/Headache/Temp > 101 Ondansetron Odt* (Zofran Odt*), 4 MG ORAL Q8H PRN for Nausea & Vomiting Miscellaneous Medications Anastrozole (Anastrozole), (Reported) Fluoxetine (Fluoxetine Hcl), 25 GM MISC, (Reported) [cyanocolabalamine], (Reported) [oxacarbazepine], (Reported) Patient History Healthcare decision maker N Resuscitation status Advanced Directive on File Past Medical/Surgical History Past Medical/Surgical History: (1) Psychosis (2) HIV disease Review of Systems All Other Systems: negative except mentioned in HPI Physical Exam Last 24 Hour Vital Signs Date Time Temp Pulse Resp B/P (MAP) Pulse Ox O2 Delivery O2 Flow Rate FiO2 01/16/18 13:57 100.0 120 20 121/82 98 Room Air 100.0 01/16/18 12:26 98.5 140 20 113/77 95 Room Air 98.4 Laboratory Tests Test 01/16/18 11:13 01/16/18 13:00 Urine Opiates Screen Negative (NEGATIVE) Urine Barbiturates Screen Negative (NEGATIVE) Phencyclidine (PCP) Screen Negative (NEGATIVE) Urine Amphetamines Screen Negative (NEGATIVE) Urine Benzodiazepines Screen Negative (NEGATIVE) Urine Cocaine Screen Negative (NEGATIVE) Urine Marijuana (THC) Screen Positive (NEGATIVE) H White Blood Count 4.1 K/UL (4.8-10.8) L Red Blood Count 4.96 M/UL (4.70-6.10) Hemoglobin 14.6 G/DL (14.2-18.0) Hematocrit 43.5 % (42.0-52.0) Mean Corpuscular Volume 88 FL (80-99) Mean Corpuscular Hemoglobin 29.4 PG (27.0-31.0) Mean Corpuscular Hemoglobin Concent 33.5 G/DL (32.0-36.0) Red Cell Distribution Width 12.0 % (11.6-14.8) Platelet Count 171 K/UL (150-450) Mean Platelet Volume 6.9 FL (6.5-10.1) Neutrophils (%) (Auto) 54.5 % (45.0-75.0) Lymphocytes (%) (Auto) 34.8 % (20.0-45.0) Monocytes (%) (Auto) 10.2 % (1.0-10.0) H Eosinophils (%) (Auto) 0.1 % (0.0-3.0) Basophils (%) (Auto) 0.5 % (0.0-2.0) Prothrombin Time 10.1 SEC (9.30-11.50) Prothromb Time International Ratio 1.0 (0.9-1.1) Activated Partial Thromboplast Time 27 SEC (23-33) Sodium Level 136 MMOL/L (136-145) Potassium Level 4.0 MMOL/L (3.5-5.1) Chloride Level 101 MMOL/L (98-107) Carbon Dioxide Level 24 MMOL/L (21-32) Anion Gap 11 mmol/L (5-15) Blood Urea Nitrogen 12 mg/dL (7-18) Creatinine 1.3 MG/DL (0.55-1.30) Estimat Glomerular Filtration Rate > 60 mL/min (>60) Glucose Level 122 MG/DL (74-106) H Calcium Level 8.6 MG/DL (8.5-10.1) Total Bilirubin 0.4 MG/DL (0.2-1.0) Aspartate Amino Transf (AST/SGOT) 31 U/L (15-37) Alanine Aminotransferase (ALT/SGPT) 51 U/L (12-78) Alkaline Phosphatase 93 U/L (46-116) Troponin I 0.000 ng/mL (0.000-0.056) Total Protein 8.9 G/DL (6.4-8.2) H Albumin 3.9 G/DL (3.4-5.0) Globulin 5.0 g/dL Albumin/Globulin Ratio 0.8 (1.0-2.7) L Serum Alcohol 5 mg/dL Height (Feet): 5 Height (Inches): 11.00 Weight (Pounds): 255 Assessment/Plan Problem List: (1) GIB (gastrointestinal bleeding) ICD Codes: K92.2 - Gastrointestinal hemorrhage, unspecified SNOMED: 53571567 (2) Abdominal pain ICD Codes: R10.9 - Unspecified abdominal pain SNOMED: 87292036 (3) Psychosis ICD Codes: F29 - Unspecified psychosis not due to a substance or known physiological condition SNOMED: 53831939 (4) HIV disease ICD Codes: B20 - Human immunodeficiency virus [HIV] disease SNOMED: 89163146 Assessment/Plan npo IV fluids check h/h GI evaluation ID evaluation psych evaluation Juve Lennon MD Jan 16, 2018 16:28
[2018-01-16] MEDS ORDERED: Nitroglycerin Subl 0.4mg tab SL PRN (16:30)
[2018-01-16] MEDS ORDERED: LORazepam Inj 2mg/ml 1ml IV PRN (16:30)
[2018-01-16] MEDS ORDERED: Miralax 17gm pkt ORAL PRN (16:30)
[2018-01-16] MEDS ORDERED: Mylanta II UD 30ml ORAL PRN (16:30)
[2018-01-16] MEDS: D5 1/2NS 1,000 ML IV SCH (18:22)
--- NOTE | 2018-01-16 19:33 | History & Physical ---
History and Physical History & Physicial Dictated for Int Med-Dr Ledezma no.[id number]. DOROTHY WOLF Jan 16, 2018 19:33
[2018-01-16] MEDS: Morphine Sulfate 2mg/ml Inj IVP PRN (19:41)
[2018-01-16 20:00] VITALS: BP 112/76
--- NOTE | 2018-01-16 20:45 | History and Physical Report ---
DATE OF ADMISSION: 01/16/2018 CHIEF COMPLAINT: This is a 32-year-old white male who presents with chief complaint "vomiting blood." HISTORY OF PRESENT ILLNESS: The patient was recently admitted to [facility]. The patient was started on multiple psychiatric medications while there. The patient states he began to experience headache yesterday evening on January 15, 2018. This morning, the patient awoke and continued to have a headache. The patient stated he felt achy all over. The patient vomited at home twice. The patient states the emesis had bright red blood in it. The patient presented to [place] emergency room. The patient was admitted for hematemesis to rule out acute upper gastrointestinal hemorrhage. REVIEW OF SYSTEMS: CONSTITUTIONAL: The patient denies weight loss or gain. The patient denies fevers or chills. HEENT: The patient denies ear or throat pain. The patient does complain of headache as above. CARDIOVASCULAR: The patient denies palpitations or chest pain. CHEST: The patient denies wheeze or shortness of breath. ABDOMEN: The patient complains of nausea and vomiting as above. The patient complains of hematemesis as above. The patient denies diarrhea or constipation. GENITOURINARY: The patient denies dysuria or increased frequency of urination. NEUROMUSCULAR: The patient denies seizures or generalized weakness. PAST MEDICAL HISTORY: Significant for: 1. HIV, which was diagnosed in 2004. The patient states his latest HIV viral load was undetectable and his T-cell count was 360. The patient also has diagnosis 2. Bipolar depression. PAST SURGICAL HISTORY: Significant for laparoscopic appendectomy in 2016. CURRENT MEDICATIONS: 1. Celexa 20 mg p.o. daily. 2. Depakote 500 mg p.o. twice daily. 3. Genvoya one tablet p.o. daily. 4. Pepcid 20 mg p.o. daily. 5. Fluoxetine 25 mg p.o. daily. 6. Trileptal 300 mg p.o. twice daily. 7. Risperdal 3 mg p.o. twice daily. 8. Risperdal 4 mg p.o. at bedtime. 9. Trazodone 50 mg p.o. at bedtime. 10. Prozac 80 mg p.o. daily. ALLERGIES: No known drug allergies. SOCIAL HISTORY: The patient is single and is currently unemployed. The patient denies tobacco use. The patient denies alcohol use having quit in 2015. PHYSICAL EXAMINATION: VITAL SIGNS: Temperature 100.0, respirations 20, pulse 120, blood pressure 121/82. GENERAL: The patient is well-developed and well-nourished slightly obese white male, in no apparent distress. HEENT: Pupils equal and responsive to light and accommodation. Extraocular movements are intact. NECK: Supple without lymphadenopathy. CHEST: Lungs are clear to auscultation bilaterally without wheezes or rales. CARDIOVASCULAR: Regular rate. S1 and S2 normal without murmurs, rubs, or gallops. ABDOMEN: Soft, nontender, and nondistended. Positive bowel sounds. No evidence of hepatosplenomegaly. Currently, no rebound or guarding noted. EXTREMITIES: Negative for clubbing, cyanosis, or edema. RECTAL/GENITAL: Deferred. NEUROLOGIC: Cranial nerves II through XII are grossly intact without focal deficits. Motor strength 5/5 bilaterally. Deep tendon reflexes are 2+ plantar. LABORATORY AND DIAGNOSTIC DATA: WBC 4.1, hemoglobin 14.6, hematocrit 42.5, platelets 171,000. Sodium 136, potassium 4.0, chloride 101, CO2 24, BUN 12, creatinine 1.3, and glucose 122. A CT of the brain was reported as within normal limits. ASSESSMENT: This is a 32-year-old white male. 1. Nausea and vomiting. 2. Hematemesis. 3. Probable upper gastrointestinal hemorrhage. 4. Right flank pain. 5. HIV. 6. Bipolar depression. TREATMENT: 1. Hematemesis/nausea/vomiting. A Gastroenterology consultation has been obtained with Dr. Mihir Monique. We will follow recommendation of Gastroenterology. Serial hemoglobins will be performed. 2. HIV. Continue Genvoya as above. 3. Bipolar depression. Psychiatric consultation obtained with Dr. Rojas. Continue psychiatric medications as above. Gerry Palencia M.D. DR: Ericka JOB#: [id number] CC:
[2018-01-16] MEDS: Heparin 5000 units/ml inj SUBQ SCH (21:00)
[2018-01-16] MEDS: Depakote 500mg tab ORAL SCH (21:18)
[2018-01-16] MEDS: TraZODone 50mg tab ORAL SCH (21:18)
[2018-01-16 22:22] LABS: APPEARANCE,URINE CLEAR; BILIRUBIN, URINE NEGATIVE (NEGATIVE); GLUCOSE, URINE (UA) NEGATIVE (NEGATIVE); KETONES,URINE 2+ (NEGATIVE); LEUKOCYTE ESTERASE ,URINE 1+ (NEGATIVE); NITRITE,URINE NEGATIVE (NEGATIVE); PH,URINE 6.5 (4.5-8.0); PROTEIN,URINE 1+ (NEGATIVE); UROBILINOGEN,URINE 1 MG/DL (0.0-1.0)
[2018-01-16 22:23] LABS: COLOR,URINE YELLOW
[2018-01-17] VITALS: BP 99/60
[2018-01-17] MEDS: Morphine Sulfate 2mg/ml Inj IVP PRN ×4 (00:17→14:15)
[2018-01-17 04:00] VITALS: BP 105/69
[2018-01-17] MEDS: D5 1/2NS 1,000 ML IV SCH ×2 (05:59→21:06)
[2018-01-17 07:16] LABS: BASOPHILS % (AUTO) 0.7 % (0.0-2.0); EOSINOPHILS % (AUTO) 0.1 % (0.0-3.0); HEMATOCRIT 38.8 % (42.0-52.0); HEMOGLOBIN 13.2 G/DL (14.2-18.0); LYMPHOCYTES % (AUTO) 39.9 % (20.0-45.0); MEAN CORPUSCULAR VOLUME 88 FL (80-99); MONOCYTES % (AUTO) 13.7 % (1.0-10.0); NEUTROPHILS % (AUTO) 45.6 % (45.0-75.0); PLATELET COUNT 163 K/UL (150-450); RED BLOOD COUNT 4.43 M/UL (4.70-6.10); RED CELL DISTRIBUTION WIDTH 11.7 % (11.6-14.8); WHITE BLOOD COUNT 3.5 K/UL (4.8-10.8)
[2018-01-17 07:37] LABS: ALANINE AMINOTRANSFERASE 38 U/L (12-78); ALBUMIN 3.5 G/DL (3.4-5.0); ALBUMIN/GLOBULIN RATIO 0.7 (1.0-2.7); ALKALINE PHOSPHATASE 80 U/L (46-116); AMYLASE 54 U/L (25-115); ANION GAP 7 mmol/L (5-15); ASPARTATE AMINO TRANSFERASE 22 U/L (15-37); BILIRUBIN,TOTAL 0.5 MG/DL (0.2-1.0); BLOOD UREA NITROGEN 13 mg/dL (7-18); CALCIUM 8.2 MG/DL (8.5-10.1); CARBON DIOXIDE 28 MMOL/L (21-32); CHLORIDE 100 MMOL/L (98-107); CREATININE 1.1 MG/DL (0.55-1.30); POTASSIUM 3.9 MMOL/L (3.5-5.1); SODIUM 135 MMOL/L (136-145)
[2018-01-17 09:00] VITALS: BP 111/72
--- NOTE | 2018-01-17 09:30 | Diagnostic Imaging Report ---
Indication: Abdominal pain Technique: Allen-scale and duplex images of the upper abdomen were obtained Comparison: none Findings: Gallbladder is unremarkable, without stones, wall thickening, nor pericholecystic fluid. Common bile duct measures 3 mm in diameter. No intrahepatic biliary ductal dilatation. Liver demonstrates normal echogenicity, no focal abnormality. Portal vein and hepatic veins are patent. Pancreas is unremarkable. Spleen is unremarkable. Left kidney measures 12.7 cm in length. Right kidney measures on 0.5 cm length. Both kidneys demonstrate normal echogenicity. There is no hydronephrosis. No focal abnormality . Non-aneurysmal abdominal aorta . Impression: Negative
--- NOTE | 2018-01-17 09:31 | Diagnostic Imaging Report ---
Indication: Cough, fever Technique: One view of the chest Comparison: none Findings: There is minimal atelectasis at the left lung base. Lungs and pleural spaces are otherwise clear. Heart size is normal Impression: No acute process This agrees with the preliminary interpretation provided overnight by [facility] teleradiology service.
[2018-01-17] MEDS: Depakote 500mg tab ORAL SCH ×2 (10:09→21:06)
[2018-01-17] MEDS: Pantoprazole Inj IV SCH (10:09)
[2018-01-17] MEDS: Heparin 5000 units/ml inj SUBQ SCH ×2 (10:12→21:08)
[2018-01-17] MEDS: Citalopram 20mg Tab ORAL SCH (10:54)
[2018-01-17 12:00] VITALS: BP 115/76
--- NOTE | 2018-01-17 12:15 | General Progress Note ---
Assessment/Plan Problem List: (1) GIB (gastrointestinal bleeding) ICD Codes: K92.2 - Gastrointestinal hemorrhage, unspecified SNOMED: 85476043 (2) Gastritis ICD Codes: K29.70 - Gastritis, unspecified, without bleeding SNOMED: 0607499 (3) Behavioral change ICD Codes: R46.89 - Other symptoms and signs involving appearance and behavior SNOMED: 10979650 (4) Abdominal pain ICD Codes: R10.9 - Unspecified abdominal pain SNOMED: 66287691 Assessment/Plan advance diet ppi fu H&H GI procedure if needed Subjective ROS Limited/Unobtainable: Yes Allergies: Coded Allergies: NO KNOWN ALLERGIES (Unverified Allergy, Unknown, 10/15/15) Subjective c/o nausea Objective Last 24 Hour Vital Signs Date Time Temp Pulse Resp B/P (MAP) Pulse Ox O2 Delivery O2 Flow Rate FiO2 01/17/18 10:41 98.2 01/17/18 09:00 98.2 78 20 111/72 96 98.2 01/17/18 04:00 98.5 85 20 105/69 98 98.5 01/17/18 00:00 99.8 109 18 99/60 98 99.8 01/16/18 21:16 100.9 100.9 01/16/18 20:00 102.5 115 20 112/76 95 102.5 01/16/18 15:48 99.2 112 18 132/79 97 Room Air 01/16/18 13:57 100.0 120 20 121/82 98 Room Air 100.0 01/16/18 12:26 98.5 140 20 113/77 95 Room Air 98.4 Intake and Output 01/16/18 01/17/18 19:00 07:00 Intake Total 900 ml Output Total 750 ml Balance 150 ml Intake IV Total 900 ml Output Urine Total 750 ml # Voids 1 Laboratory Tests 01/16/18 13:00: White Blood Count 4.1L, Red Blood Count 4.96, Hemoglobin 14.6, Hematocrit 43.5, Mean Corpuscular Volume 88, Mean Corpuscular Hemoglobin 29.4, Mean Corpuscular Hemoglobin Concent 33.5, Red Cell Distribution Width 12.0, Platelet Count 171, Mean Platelet Volume 6.9, Neutrophils (%) (Auto) 54.5, Lymphocytes (%) (Auto) 34.8, Monocytes (%) (Auto) 10.2H, Eosinophils (%) (Auto) 0.1, Basophils (%) ( Auto) 0.5, Prothrombin Time 10.1, Prothromb Time International Ratio 1.0, Activated Partial Thromboplast Time 27, Sodium Level 136, Potassium Level 4.0, Chloride Level 101, Carbon Dioxide Level 24, Anion Gap 11, Blood Urea Nitrogen 12, Creatinine 1.3, Estimat Glomerular Filtration Rate > 60, Glucose Level 122H , Calcium Level 8.6, Total Bilirubin 0.4, Aspartate Amino Transf (AST/SGOT) 31, Alanine Aminotransferase (ALT/SGPT) 51, Alkaline Phosphatase 93, Troponin I 0.000, Total Protein 8.9H, Albumin 3.9, Globulin 5.0, Albumin/Globulin Ratio 0.8L, Serum Alcohol 5 01/16/18 21:40: Urine Color Yellow, Urine Appearance Clear, Urine pH 6.5, Urine Specific [place] 1.010, Urine Protein 1+H, Urine Glucose (UA) Negative, Urine Ketones 2+H , Urine Occult Blood Negative, Urine Nitrite Negative, Urine Bilirubin Negative , Urine Urobilinogen 1H, Urine Leukocyte Esterase 1+H, Urine RBC 0-2H, Urine WBC 0-2, Urine Squamous Epithelial Cells None, Urine Bacteria Few, Urine Mucus ManyH 01/17/18 05:45: White Blood Count 3.5L, Red Blood Count 4.43L, Hemoglobin 13.2L, Hematocrit 38.8L, Mean Corpuscular Volume 88, Mean Corpuscular Hemoglobin 29.8, Mean Corpuscular Hemoglobin Concent 34.1, Red Cell Distribution Width 11.7, Platelet Count 163, Mean Platelet Volume 6.8, Neutrophils (%) (Auto) 45.6, Lymphocytes (% ) (Auto) 39.9, Monocytes (%) (Auto) 13.7H, Eosinophils (%) (Auto) 0.1, Basophils (%) (Auto) 0.7, Activated Partial Thromboplast Time 27, Sodium Level 135L, Potassium Level 3.9, Chloride Level 100, Carbon Dioxide Level 28, Anion Gap 7, Blood Urea Nitrogen 13, Creatinine 1.1, Estimat Glomerular Filtration Rate > 60, Glucose Level 126H, Calcium Level 8.2L, Total Bilirubin 0.5, Aspartate Amino Transf (AST/SGOT) 22, Alanine Aminotransferase (ALT/SGPT) 38, Alkaline Phosphatase 80, Total Protein 8.4H, Albumin 3.5, Globulin 4.9, Albumin/ Globulin Ratio 0.7L, Amylase Level 54, Lipase 63L Height (Feet): 5 Height (Inches): 11.00 Weight (Pounds): 240 General Appearance: alert EENT: normal ENT inspection Neck: supple Cardiovascular: normal rate Respiratory/Chest: decreased breath sounds Abdomen: normal bowel sounds, non tender, soft Extremities: non-tender EN BRUNO Jan 17, 2018 12:15
[2018-01-17 16:00] VITALS: BP 111/73
--- NOTE | 2018-01-17 17:14 | Pulmonology Progress Note ---
Assessment/Plan Problems: (1) GIB (gastrointestinal bleeding) (2) Abdominal pain (3) Psychosis (4) HIV disease Assessment/Plan GI evaluation appreciated check h/h symptomatic treatment check labs in am Subjective ROS Limited/Unobtainable: No Constitutional: Reports: no symptoms HEENT: Repors: no symptoms Respiratory: Reports: no symptoms Allergies: Coded Allergies: NO KNOWN ALLERGIES (Unverified Allergy, Unknown, 10/15/15) Objective Last 24 Hour Vital Signs Date Time Temp Pulse Resp B/P (MAP) Pulse Ox O2 Delivery O2 Flow Rate FiO2 01/17/18 16:00 98.5 79 20 111/73 98 98.5 01/17/18 12:00 97.9 80 20 115/76 97 97.9 01/17/18 10:41 98.2 01/17/18 09:00 98.2 78 20 111/72 96 98.2 01/17/18 04:00 98.5 85 20 105/69 98 98.5 01/17/18 00:00 99.8 109 18 99/60 98 99.8 01/16/18 21:16 100.9 100.9 01/16/18 20:00 102.5 115 20 112/76 95 102.5 Intake and Output 01/16/18 01/17/18 19:00 07:00 Intake Total 900 ml Output Total 750 ml Balance 150 ml Intake IV Total 900 ml Output Urine Total 750 ml # Voids 1 General Appearance: WD/WN HEENT: normocephalic, atraumatic Respiratory/Chest: chest wall non-tender, lungs clear Cardiovascular: normal peripheral pulses, normal rate Abdomen: normal bowel sounds, soft, non tender Genitourinary: normal external genitalia Extremities: no clubbing Skin: no rash Microbiology Date/Time Source Procedure Growth Status 01/16/18 21:40 Urine,Clean Catch Urine Culture - Preliminary NO GROWTH Resulted Laboratory Tests 01/16/18 21:40: Urine Color Yellow, Urine Appearance Clear, Urine pH 6.5, Urine Specific [place] 1.010, Urine Protein 1+H, Urine Glucose (UA) Negative, Urine Ketones 2+H , Urine Occult Blood Negative, Urine Nitrite Negative, Urine Bilirubin Negative , Urine Urobilinogen 1H, Urine Leukocyte Esterase 1+H, Urine RBC 0-2H, Urine WBC 0-2, Urine Squamous Epithelial Cells None, Urine Bacteria Few, Urine Mucus ManyH 4/6/18 05:45: White Blood Count 3.5L, Red Blood Count 4.43L, Hemoglobin 13.2L, Hematocrit 38.8L, Mean Corpuscular Volume 88, Mean Corpuscular Hemoglobin 29.8, Mean Corpuscular Hemoglobin Concent 34.1, Red Cell Distribution Width 11.7, Platelet Count 163, Mean Platelet Volume 6.8, Neutrophils (%) (Auto) 45.6, Lymphocytes (% ) (Auto) 39.9, Monocytes (%) (Auto) 13.7H, Eosinophils (%) (Auto) 0.1, Basophils (%) (Auto) 0.7, Activated Partial Thromboplast Time 27, Sodium Level 135L, Potassium Level 3.9, Chloride Level 100, Carbon Dioxide Level 28, Anion Gap 7, Blood Urea Nitrogen 13, Creatinine 1.1, Estimat Glomerular Filtration Rate > 60, Glucose Level 126H, Calcium Level 8.2L, Total Bilirubin 0.5, Aspartate Amino Transf (AST/SGOT) 22, Alanine Aminotransferase (ALT/SGPT) 38, Alkaline Phosphatase 80, Total Protein 8.4H, Albumin 3.5, Globulin 4.9, Albumin/ Globulin Ratio 0.7L, Amylase Level 54, Lipase 63L Current Medications Medications (Trade) Dose Ordered Sig/Rodríguez Route PRN Reason Start Time Stop Time Status Last Admin Dose Admin Acetaminophen (Tylenol) 650 mg Q4H PRN ORAL fever 01/16/18 16:30 02/15/18 16:29 Al Hydroxide/Mg Hydroxide (Mylanta II) 30 ml Q6H PRN ORAL dyspepsia 01/16/18 16:30 02/15/18 16:29 Citalopram Hydrobromide (celeXA) 20 mg DAILY ORAL 01/17/18 09:00 02/16/18 08:59 01/17/18 10:54 Dextrose (Dextrose 50%) 25 ml STAT PRN IV Hypoglycemia BS 60-69 mg/dL 01/16/18 17:30 02/15/18 17:29 Dextrose (Dextrose 50%) 50 ml STAT PRN IV Hypoglycemia BS< 60 mg/dL 01/16/18 17:30 02/15/18 16:29 Dextrose/Sodium Chloride 1,000 ml @ 75 mls/hr [id number] IV 01/16/18 18:00 02/15/18 17:59 01/17/18 05:59 Diphenhydramine HCl (Benadryl) 25 mg Q6H PRN ORAL Itching/Pruritis 01/16/18 16:30 02/15/18 16:29 Divalproex Sodium (Depakote) 500 mg Q12HR ORAL 01/16/18 21:00 02/15/18 20:59 01/17/18 10:09 Heparin Sodium (Porcine) (Heparin 5000 units/ml) 5,000 units EVERY 12 HOURS SUBQ 01/16/18 21:00 02/15/18 20:59 01/17/18 10:12 Lorazepam (Ativan 2mg/ml 1ml) 1 mg Q4H PRN IV agitation 01/16/18 16:30 01/23/18 16:29 Morphine Sulfate (Morphine Sulfate) 2 mg Q4H PRN IVP severe Pain (Pain Scale 7-10) 01/16/18 16:30 01/23/18 16:29 01/17/18 14:15 Nitroglycerin (Ntg) 0.4 mg Q5M X 3 DOSES PRN SL Prn Chest Pain 01/16/18 16:30 02/15/18 16:29 Ondansetron HCl (Zofran) 4 mg Q6H PRN IVP Nausea & Vomiting 01/16/18 16:30 02/15/18 16:29 Pantoprazole (Protonix) 40 mg DAILY IV 01/17/18 09:00 02/16/18 08:59 01/17/18 10:09 Polyethylene Glycol (Miralax) 17 gm HSPRN PRN ORAL Constipation 01/16/18 16:30 02/15/18 16:29 Risperidone (RisperDAL) 3 mg BID ORAL 01/16/18 18:00 02/15/18 17:59 01/17/18 10:10 Temazepam (Restoril) 15 mg HSPRN PRN ORAL Insomnia 01/16/18 16:30 01/23/18 16:29 Trazodone HCl (Desyrel) 50 mg BEDTIME ORAL 01/16/18 21:00 02/15/18 20:59 01/16/18 21:18 Juve Lennon MD Jan 17, 2018 17:14
[2018-01-17] MEDS ORDERED: Morphine Sulfate 2mg/ml Inj IVP PRN (17:30)
--- NOTE | 2018-01-17 17:46 | Internal Med Progress Note ---
Subjective Date of Service: Jan 17, 2018 Physician Name Gerry Wolf Attending Physician Raffaele Ledezma MD Current Medications Medications (Trade) Dose Ordered Sig/Rodríguez Route PRN Reason Start Time Stop Time Status Last Admin Dose Admin Acetaminophen (Tylenol) 650 mg Q4H PRN ORAL fever 01/16/18 16:30 02/15/18 16:29 Al Hydroxide/Mg Hydroxide (Mylanta II) 30 ml Q6H PRN ORAL dyspepsia 01/16/18 16:30 02/15/18 16:29 Citalopram Hydrobromide (celeXA) 20 mg DAILY ORAL 01/17/18 09:00 02/16/18 08:59 01/17/18 10:54 Dextrose (Dextrose 50%) 25 ml STAT PRN IV Hypoglycemia BS 60-69 mg/dL 01/16/18 17:30 02/15/18 17:29 Dextrose (Dextrose 50%) 50 ml STAT PRN IV Hypoglycemia BS< 60 mg/dL 01/16/18 17:30 02/15/18 16:29 Dextrose/Sodium Chloride 1,000 ml @ 75 mls/hr [id number] IV 01/16/18 18:00 02/15/18 17:59 01/17/18 05:59 Diphenhydramine HCl (Benadryl) 25 mg Q6H PRN ORAL Itching/Pruritis 01/16/18 16:30 02/15/18 16:29 Divalproex Sodium (Depakote) 500 mg Q12HR ORAL 01/16/18 21:00 02/15/18 20:59 01/17/18 10:09 Heparin Sodium (Porcine) (Heparin 5000 units/ml) 5,000 units EVERY 12 HOURS SUBQ 01/16/18 21:00 02/15/18 20:59 01/17/18 10:12 Lorazepam (Ativan 2mg/ml 1ml) 1 mg Q4H PRN IV agitation 01/16/18 16:30 01/23/18 16:29 Morphine Sulfate (Morphine Sulfate) 0.5 mg Q4H PRN IVP Severe Pain (Pain Scale 7-10) 01/17/18 17:30 01/24/18 17:29 Nitroglycerin (Ntg) 0.4 mg Q5M X 3 DOSES PRN SL Prn Chest Pain 01/16/18 16:30 02/15/18 16:29 Ondansetron HCl (Zofran) 4 mg Q6H PRN IVP Nausea & Vomiting 01/16/18 16:30 02/15/18 16:29 Pantoprazole (Protonix) 40 mg DAILY IV 01/17/18 09:00 02/16/18 08:59 01/17/18 10:09 Polyethylene Glycol (Miralax) 17 gm HSPRN PRN ORAL Constipation 01/16/18 16:30 02/15/18 16:29 Risperidone (RisperDAL) 3 mg BID ORAL 01/16/18 18:00 02/15/18 17:59 01/17/18 10:10 Temazepam (Restoril) 15 mg HSPRN PRN ORAL Insomnia 01/16/18 16:30 01/23/18 16:29 Trazodone HCl (Desyrel) 50 mg BEDTIME ORAL 01/16/18 21:00 02/15/18 20:59 01/16/18 21:18 Allergies: Coded Allergies: NO KNOWN ALLERGIES (Unverified Allergy, Unknown, 10/15/15) ROS Limited/Unobtainable: No Constitutional: Reports: no symptoms HEENT: Reports: no symptoms Cardiovascular: Reports: no symptoms Respiratory: Reports: no symptoms Gastrointestinal/Abdominal: Reports: abdominal pain, nausea, vomiting Genitourinary: Reports: no symptoms Neurologic/Psychiatric: Reports: no symptoms Subjective 32 YO M admitted with hematemesis. Cover for Int Med-Dr Ledezma Objective Last Vital Signs Date Time Temp Pulse Resp B/P (MAP) Pulse Ox O2 Delivery O2 Flow Rate FiO2 01/17/18 16:00 98.5 79 20 111/73 98 98.5 01/16/18 15:48 Room Air General Appearance: WD/WN, no apparent distress, alert EENT: PERRL/EOMI, normal ENT inspection, TMs normal Neck: non-tender, normal alignment, supple Cardiovascular: normal peripheral pulses, normal rate, regular rhythm, no gallop/murmur, no JVD Respiratory/Chest: chest wall non-tender, lungs clear, normal breath sounds, no respiratory distress, no accessory muscle use Abdomen: no organomegaly, no mass, decreased bowel sounds, guarding, tender Extremities: normal range of motion Neurologic: knot bumper II-XII grossly normal, no motor/sensory deficits Skin: normal pigmentation Laboratory Tests Test 01/16/18 21:40 01/17/18 05:45 Urine Color Yellow Urine Appearance Clear Urine pH 6.5 (4.5-8.0) Urine Specific [place] 1.010 (1.005-1.035) Urine Protein 1+ (NEGATIVE) H Urine Glucose (UA) Negative (NEGATIVE) Urine Ketones 2+ (NEGATIVE) H Urine Occult Blood Negative (NEGATIVE) Urine Nitrite Negative (NEGATIVE) Urine Bilirubin Negative (NEGATIVE) Urine Urobilinogen 1 MG/DL (0.0-1.0) H Urine Leukocyte Esterase 1+ (NEGATIVE) H Urine RBC 0-2 /HPF (0 - 0) H Urine WBC 0-2 /HPF (0 - 0) Urine Squamous Epithelial Cells None /LPF (NONE/OCC) Urine Bacteria Few /HPF (NONE) Urine Mucus Many /LPF (NONE/OCC) H White Blood Count 3.5 K/UL (4.8-10.8) L Red Blood Count 4.43 M/UL (4.70-6.10) L Hemoglobin 13.2 G/DL (14.2-18.0) L Hematocrit 38.8 % (42.0-52.0) L Mean Corpuscular Volume 88 FL (80-99) Mean Corpuscular Hemoglobin 29.8 PG (27.0-31.0) Mean Corpuscular Hemoglobin Concent 34.1 G/DL (32.0-36.0) Red Cell Distribution Width 11.7 % (11.6-14.8) Platelet Count 163 K/UL (150-450) Mean Platelet Volume 6.8 FL (6.5-10.1) Neutrophils (%) (Auto) 45.6 % (45.0-75.0) Lymphocytes (%) (Auto) 39.9 % (20.0-45.0) Monocytes (%) (Auto) 13.7 % (1.0-10.0) H Eosinophils (%) (Auto) 0.1 % (0.0-3.0) Basophils (%) (Auto) 0.7 % (0.0-2.0) Activated Partial Thromboplast Time 27 SEC (23-33) Sodium Level 135 MMOL/L (136-145) L Potassium Level 3.9 MMOL/L (3.5-5.1) Chloride Level 100 MMOL/L (98-107) Carbon Dioxide Level 28 MMOL/L (21-32) Anion Gap 7 mmol/L (5-15) Blood Urea Nitrogen 13 mg/dL (7-18) Creatinine 1.1 MG/DL (0.55-1.30) Estimat Glomerular Filtration Rate > 60 mL/min (>60) Glucose Level 126 MG/DL (74-106) H Calcium Level 8.2 MG/DL (8.5-10.1) L Total Bilirubin 0.5 MG/DL (0.2-1.0) Aspartate Amino Transf (AST/SGOT) 22 U/L (15-37) Alanine Aminotransferase (ALT/SGPT) 38 U/L (12-78) Alkaline Phosphatase 80 U/L (46-116) Total Protein 8.4 G/DL (6.4-8.2) H Albumin 3.5 G/DL (3.4-5.0) Globulin 4.9 g/dL Albumin/Globulin Ratio 0.7 (1.0-2.7) L Amylase Level 54 U/L (25-115) Lipase 63 U/L (73-393) L Microbiology Date/Time Source Procedure Growth Status 01/16/18 21:40 Urine,Clean Catch Urine Culture - Preliminary NO GROWTH Resulted Intake and Output 01/16/18 01/17/18 19:00 07:00 Intake Total 900 ml Output Total 750 ml Balance 150 ml Intake IV Total 900 ml Output Urine Total 750 ml # Voids 1 Assessment/Plan Problem List: (1) Bipolar depression Assessment & Plan: Aw[facility] psych consult. (2) Right flank pain Assessment & Plan: Abdominal ultrasound neg for renal calculi. See GI note. (3) Nausea & vomiting Assessment & Plan: resolving. See GI note. (4) Hematemesis Assessment & Plan: Await endoscopy-see GI note. (5) Abdominal pain (6) HIV disease Assessment & Plan: Not on HAART. Await ID consult Status: not improved GERRY WOLF Jan 17, 2018 17:45
[2018-01-17 20:00] VITALS: BP 111/74
[2018-01-17] MEDS: Morphine Sulfate 4mg/ml Inj IVP PRN (20:55)
[2018-01-17] MEDS: TraZODone 50mg tab ORAL SCH (21:06)
[2018-01-18] VITALS: BP 101/46
[2018-01-18] MEDS: Morphine Sulfate 4mg/ml Inj IVP PRN ×4 (01:02→16:09)
[2018-01-18 01:07] VITALS: BP 107/63
[2018-01-18 04:00] VITALS: BP 112/67
[2018-01-18 07:09] LABS: HEMATOCRIT 35.7 % (42.0-52.0); HEMOGLOBIN 12.6 G/DL (14.2-18.0); MEAN CORPUSCULAR VOLUME 88 FL (80-99); PLATELET COUNT 148 K/UL (150-450); RED BLOOD COUNT 4.07 M/UL (4.70-6.10); RED CELL DISTRIBUTION WIDTH 11.5 % (11.6-14.8); WHITE BLOOD COUNT 2.8 K/UL (4.8-10.8)
[2018-01-18 07:25] LABS: ALANINE AMINOTRANSFERASE 30 U/L (12-78); ALBUMIN/GLOBULIN RATIO 0.7 (1.0-2.7); ALKALINE PHOSPHATASE 68 U/L (46-116); ANION GAP 6 mmol/L (5-15); ASPARTATE AMINO TRANSFERASE 15 U/L (15-37); BILIRUBIN,TOTAL 0.3 MG/DL (0.2-1.0); BLOOD UREA NITROGEN 11 mg/dL (7-18); CALCIUM 7.8 MG/DL (8.5-10.1); CARBON DIOXIDE 29 MMOL/L (21-32); CHLORIDE 103 MMOL/L (98-107); PHOSPHORUS 4.1 MG/DL (2.5-4.9); POTASSIUM 3.8 MMOL/L (3.5-5.1); SODIUM 138 MMOL/L (136-145)
[2018-01-18 07:29] LABS: INR 0.9 (0.9-1.1)
[2018-01-18 08:00] VITALS: BP 103/66
[2018-01-18] MEDS: Heparin 5000 units/ml inj SUBQ SCH (09:00)
[2018-01-18] MEDS: Pantoprazole Inj IV SCH (09:29)
[2018-01-18] MEDS: Citalopram 20mg Tab ORAL SCH (09:30)
[2018-01-18] MEDS: Depakote 500mg tab ORAL SCH (09:30)
[2018-01-18] MEDS: D5 1/2NS 1,000 ML IV SCH (09:31)
[2018-01-18 12:00] VITALS: BP 114/75
[2018-01-18] MEDS ORDERED: D5 1/2NS 1000ml IV ONE ×2 (14:59→17:39)
--- NOTE | 2018-01-18 15:11 | Pulmonology Progress Note ---
Assessment/Plan Problems: (1) GIB (gastrointestinal bleeding) (2) Abdominal pain (3) Psychosis (4) HIV disease Assessment/Plan GI evaluation appreciated check h/h symptomatic treatment check labs in am Subjective ROS Limited/Unobtainable: No Constitutional: Reports: no symptoms Respiratory: Reports: no symptoms Allergies: Coded Allergies: NO KNOWN ALLERGIES (Unverified Allergy, Unknown, 10/15/15) Objective Last 24 Hour Vital Signs Date Time Temp Pulse Resp B/P (MAP) Pulse Ox O2 Delivery O2 Flow Rate FiO2 01/18/18 12:00 98.1 84 20 114/75 97 Room Air 98.1 01/18/18 08:00 97.4 73 19 103/66 96 Room Air 97.4 01/18/18 04:00 98.0 71 20 112/67 96 98.0 01/18/18 01:07 72 107/63 Room Air 01/18/18 00:00 98.0 76 20 101/46 98 98.0 01/17/18 20:00 98.9 75 20 111/74 98 98.9 01/17/18 16:00 98.5 79 20 111/73 98 98.5 Intake and Output 01/17/18 01/18/18 19:00 07:00 Intake Total 1475 ml 1625 ml Balance 1475 ml 1625 ml Intake Oral 800 ml 800 ml IV Total 675 ml 825 ml # Voids 3 3 Objective abdominal pain resolved pt wants imitrex for his headach continue psychiatric meds dc home with oral imitrex Microbiology Date/Time Source Procedure Growth Status 01/16/18 21:35 Blood Blood Culture - Preliminary NO GROWTH AFTER 24 HOURS Resulted 01/16/18 21:25 Blood Blood Culture - Preliminary NO GROWTH AFTER 24 HOURS Resulted 01/16/18 21:40 Urine,Clean Catch Urine Culture - Final Mixed Gram Positive Organism Complete Laboratory Tests 01/18/18 06:05: White Blood Count 2.8L, Red Blood Count 4.07L, Hemoglobin 12.6L, Hematocrit 35.7L, Mean Corpuscular Volume 88, Mean Corpuscular Hemoglobin 31.0, Mean Corpuscular Hemoglobin Concent 35.4, Red Cell Distribution Width 11.5L, Platelet Count 148L, Mean Platelet Volume 7.2, Neutrophils (%) (Auto) , Lymphocytes (%) (Auto) , Monocytes (%) (Auto) , Eosinophils (%) (Auto) , Basophils (%) (Auto) , Differential Total Cells Counted 100, Neutrophils % ( Manual) 18L, Lymphocytes % (Manual) 68H, Monocytes % (Manual) 12H, Eosinophils % (Manual) 2, Basophils % (Manual) 0, Band Neutrophils 0, Platelet Estimate Adequate, Platelet Morphology Normal, Anisocytosis 1+, Prothrombin Time 9.8, Prothromb Time International Ratio 0.9, Activated Partial Thromboplast Time 26, Sodium Level 138, Potassium Level 3.8, Chloride Level 103, Carbon Dioxide Level 29, Anion Gap 6, Blood Urea Nitrogen 11, Creatinine 1.0, Estimat Glomerular Filtration Rate > 60, Glucose Level 105, Calcium Level 7.8L, Phosphorus Level 4.1, Magnesium Level 2.2, Total Bilirubin 0.3, Aspartate Amino Transf (AST/SGOT ) 15, Alanine Aminotransferase (ALT/SGPT) 30, Alkaline Phosphatase 68, Total Protein 7.5, Albumin 3.0L, Globulin 4.5, Albumin/Globulin Ratio 0.7L Current Medications Medications (Trade) Dose Ordered Sig/Rodríguez Route PRN Reason Start Time Stop Time Status Last Admin Dose Admin Acetaminophen (Tylenol) 650 mg Q4H PRN ORAL fever 01/16/18 16:30 02/15/18 16:29 Al Hydroxide/Mg Hydroxide (Mylanta II) 30 ml Q6H PRN ORAL dyspepsia 01/16/18 16:30 02/15/18 16:29 Citalopram Hydrobromide (celeXA) 20 mg DAILY ORAL 01/17/18 09:00 02/16/18 08:59 01/18/18 09:30 Dextrose (Dextrose 50%) 25 ml STAT PRN IV Hypoglycemia BS 60-69 mg/dL 01/16/18 17:30 02/15/18 17:29 Dextrose (Dextrose 50%) 50 ml STAT PRN IV Hypoglycemia BS< 60 mg/dL 01/16/18 17:30 02/15/18 16:29 Dextrose/Sodium Chloride 1,000 ml @ 75 mls/hr [id number] IV 01/16/18 18:00 02/15/18 17:59 01/18/18 09:31 Diphenhydramine HCl (Benadryl) 25 mg Q6H PRN ORAL Itching/Pruritis 01/16/18 16:30 02/15/18 16:29 Divalproex Sodium (Depakote) 500 mg Q12HR ORAL 01/16/18 21:00 02/15/18 20:59 01/18/18 09:30 Heparin Sodium (Porcine) (Heparin 5000 units/ml) 5,000 units EVERY 12 HOURS SUBQ 01/16/18 21:00 02/15/18 20:59 01/17/18 21:08 Lorazepam (Ativan 2mg/ml 1ml) 1 mg Q4H PRN IV agitation 01/16/18 16:30 01/23/18 16:29 Morphine Sulfate (Morphine Sulfate) 0.5 mg Q4H PRN IVP Severe Pain (Pain Scale 7-10) 01/17/18 21:00 01/24/18 17:29 01/18/18 11:09 Nitroglycerin (Ntg) 0.4 mg Q5M X 3 DOSES PRN SL Prn Chest Pain 01/16/18 16:30 02/15/18 16:29 Ondansetron HCl (Zofran) 4 mg Q6H PRN IVP Nausea & Vomiting 01/16/18 16:30 02/15/18 16:29 Pantoprazole (Protonix) 40 mg DAILY IV 01/17/18 09:00 02/16/18 08:59 01/18/18 09:29 Polyethylene Glycol (Miralax) 17 gm HSPRN PRN ORAL Constipation 01/16/18 16:30 02/15/18 16:29 Risperidone (RisperDAL) 3 mg BID ORAL 01/16/18 18:00 02/15/18 17:59 01/18/18 09:30 Temazepam (Restoril) 15 mg HSPRN PRN ORAL Insomnia 01/16/18 16:30 01/23/18 16:29 Trazodone HCl (Desyrel) 50 mg BEDTIME ORAL 01/16/18 21:00 02/15/18 20:59 01/17/18 21:06 Juve Lennon MD Jan 18, 2018 15:11
--- NOTE | 2018-01-18 16:08 | Internal Med Progress Note ---
Subjective Date of Service: Jan 18, 2018 Physician Name Dorothy Palencia Attending Physician Raffaele Ledezma MD Current Medications Medications (Trade) Dose Ordered Sig/Rodríguez Route PRN Reason Start Time Stop Time Status Last Admin Dose Admin Acetaminophen (Tylenol) 650 mg Q4H PRN ORAL fever 01/16/18 16:30 02/15/18 16:29 Al Hydroxide/Mg Hydroxide (Mylanta II) 30 ml Q6H PRN ORAL dyspepsia 01/16/18 16:30 02/15/18 16:29 Citalopram Hydrobromide (celeXA) 20 mg DAILY ORAL 01/17/18 09:00 02/16/18 08:59 01/18/18 09:30 Dextrose (Dextrose 50%) 25 ml STAT PRN IV Hypoglycemia BS 60-69 mg/dL 01/16/18 17:30 02/15/18 17:29 Dextrose (Dextrose 50%) 50 ml STAT PRN IV Hypoglycemia BS< 60 mg/dL 01/16/18 17:30 02/15/18 16:29 Dextrose/Sodium Chloride 1,000 ml @ 75 mls/hr [id number] IV 01/16/18 18:00 02/15/18 17:59 01/18/18 09:31 Diphenhydramine HCl (Benadryl) 25 mg Q6H PRN ORAL Itching/Pruritis 01/16/18 16:30 02/15/18 16:29 Divalproex Sodium (Depakote) 500 mg Q12HR ORAL 01/16/18 21:00 02/15/18 20:59 01/18/18 09:30 Heparin Sodium (Porcine) (Heparin 5000 units/ml) 5,000 units EVERY 12 HOURS SUBQ 01/16/18 21:00 02/15/18 20:59 01/17/18 21:08 Imipramine HCl (Tofranil) 25 mg Q8HR ORAL 01/18/18 15:15 02/17/18 15:14 Lorazepam (Ativan 2mg/ml 1ml) 1 mg Q4H PRN IV agitation 01/16/18 16:30 01/23/18 16:29 Morphine Sulfate (Morphine Sulfate) 0.5 mg Q4H PRN IVP Severe Pain (Pain Scale 7-10) 01/17/18 21:00 01/24/18 17:29 01/18/18 11:09 Nitroglycerin (Ntg) 0.4 mg Q5M X 3 DOSES PRN SL Prn Chest Pain 01/16/18 16:30 02/15/18 16:29 Ondansetron HCl (Zofran) 4 mg Q6H PRN IVP Nausea & Vomiting 01/16/18 16:30 02/15/18 16:29 Pantoprazole (Protonix) 40 mg DAILY IV 01/17/18 09:00 02/16/18 08:59 01/18/18 09:29 Polyethylene Glycol (Miralax) 17 gm HSPRN PRN ORAL Constipation 01/16/18 16:30 02/15/18 16:29 Risperidone (RisperDAL) 3 mg BID ORAL 01/16/18 18:00 02/15/18 17:59 01/18/18 09:30 Temazepam (Restoril) 15 mg HSPRN PRN ORAL Insomnia 01/16/18 16:30 01/23/18 16:29 Trazodone HCl (Desyrel) 50 mg BEDTIME ORAL 01/16/18 21:00 02/15/18 20:59 01/17/18 21:06 Allergies: Coded Allergies: NO KNOWN ALLERGIES (Unverified Allergy, Unknown, 10/15/15) ROS Limited/Unobtainable: No Constitutional: Reports: chills, fever HEENT: Reports: no symptoms Cardiovascular: Reports: no symptoms Respiratory: Reports: no symptoms Gastrointestinal/Abdominal: Reports: no symptoms Genitourinary: Reports: no symptoms Neurologic/Psychiatric: Reports: no symptoms Subjective 32 YO M admitted with hematemesis. Cover for Int Dwight-Dr Ledezma Objective Last Vital Signs Date Time Temp Pulse Resp B/P (MAP) Pulse Ox O2 Delivery O2 Flow Rate FiO2 01/18/18 12:00 98.1 84 20 114/75 97 Room Air 98.1 General Appearance: WD/WN, no apparent distress, alert EENT: PERRL/EOMI, normal ENT inspection, TMs normal Neck: non-tender, normal alignment, supple, normal inspection Cardiovascular: normal peripheral pulses, normal rate, regular rhythm, no gallop/murmur, no JVD Respiratory/Chest: chest wall non-tender, lungs clear, normal breath sounds, no respiratory distress, no accessory muscle use Abdomen: normal bowel sounds, non tender, soft, no organomegaly, no mass Extremities: normal range of motion Neurologic: senior examiner II-XII grossly normal, no motor/sensory deficits Skin: normal pigmentation, warm/dry Laboratory Tests Test 01/18/18 06:05 White Blood Count 2.8 K/UL (4.8-10.8) L Red Blood Count 4.07 M/UL (4.70-6.10) L Hemoglobin 12.6 G/DL (14.2-18.0) L Hematocrit 35.7 % (42.0-52.0) L Mean Corpuscular Volume 88 FL (80-99) Mean Corpuscular Hemoglobin 31.0 PG (27.0-31.0) Mean Corpuscular Hemoglobin Concent 35.4 G/DL (32.0-36.0) Red Cell Distribution Width 11.5 % (11.6-14.8) L Platelet Count 148 K/UL (150-450) L Mean Platelet Volume 7.2 FL (6.5-10.1) Neutrophils (%) (Auto) % (45.0-75.0) Lymphocytes (%) (Auto) % (20.0-45.0) Monocytes (%) (Auto) % (1.0-10.0) Eosinophils (%) (Auto) % (0.0-3.0) Basophils (%) (Auto) % (0.0-2.0) Differential Total Cells Counted 100 Neutrophils % (Manual) 18 % (45-75) L Lymphocytes % (Manual) 68 % (20-45) H Monocytes % (Manual) 12 % (1-10) H Eosinophils % (Manual) 2 % (0-3) Basophils % (Manual) 0 % (0-2) Band Neutrophils 0 % (0-8) Platelet Estimate Adequate Platelet Morphology Normal Anisocytosis 1+ Prothrombin Time 9.8 SEC (9.30-11.50) Prothromb Time International Ratio 0.9 (0.9-1.1) Activated Partial Thromboplast Time 26 SEC (23-33) Sodium Level 138 MMOL/L (136-145) Potassium Level 3.8 MMOL/L (3.5-5.1) Chloride Level 103 MMOL/L (98-107) Carbon Dioxide Level 29 MMOL/L (21-32) Anion Gap 6 mmol/L (5-15) Blood Urea Nitrogen 11 mg/dL (7-18) Creatinine 1.0 MG/DL (0.55-1.30) Estimat Glomerular Filtration Rate > 60 mL/min (>60) Glucose Level 105 MG/DL (74-106) Calcium Level 7.8 MG/DL (8.5-10.1) L Phosphorus Level 4.1 MG/DL (2.5-4.9) Magnesium Level 2.2 MG/DL (1.8-2.4) Total Bilirubin 0.3 MG/DL (0.2-1.0) Aspartate Amino Transf (AST/SGOT) 15 U/L (15-37) Alanine Aminotransferase (ALT/SGPT) 30 U/L (12-78) Alkaline Phosphatase 68 U/L (46-116) Total Protein 7.5 G/DL (6.4-8.2) Albumin 3.0 G/DL (3.4-5.0) L Globulin 4.5 g/dL Albumin/Globulin Ratio 0.7 (1.0-2.7) L Microbiology Date/Time Source Procedure Growth Status 01/16/18 21:35 Blood Blood Culture - Preliminary NO GROWTH AFTER 24 HOURS Resulted 01/16/18 21:25 Blood Blood Culture - Preliminary NO GROWTH AFTER 24 HOURS Resulted 01/16/18 21:40 Urine,Clean Catch Urine Culture - Final Mixed Gram Positive Organism Complete Intake and Output 01/17/18 01/18/18 19:00 07:00 Intake Total 1475 ml 1625 ml Balance 1475 ml 1625 ml Intake Oral 800 ml 800 ml IV Total 675 ml 825 ml # Voids 3 3 Objective General Appearance: WD/WN, no apparent distress, alert EENT: PERRL/EOMI, normal ENT inspection, TMs normal Neck: non-tender, normal alignment, supple Cardiovascular: normal peripheral pulses, normal rate, regular rhythm, no gallop/murmur, no JVD Respiratory/Chest: chest wall non-tender, lungs clear, normal breath sounds, no respiratory distress, no accessory muscle use Abdomen: no organomegaly, no mass, decreased bowel sounds, guarding, tender Extremities: normal range of motion Neurologic: senior examiner II-XII grossly normal, no motor/sensory deficits Skin: normal pigmentation Assessment/Plan Problem List: (1) Bipolar depression Assessment & Plan: Aw[facility] psych consult. (2) Right flank pain Assessment & Plan: Abdominal ultrasound neg for renal calculi. See GI note. (3) Nausea & vomiting Assessment & Plan: resolving. See GI note. (4) Hematemesis Assessment & Plan: Await endoscopy-see GI note. (5) Abdominal pain (6) HIV disease Assessment & Plan: Not on HAART. Await ID consult Status: DOROTHY San Jan 18, 2018 16:08
--- NOTE | 2018-01-18 16:26 | Infectious Diseases Prog Note ---
Assessment/Plan Assessment/Plan Full consult dictated: A) 1) hiv 2) hematemesis 3) abdominal and flank pain P) 1) start genvoya 2) check cd4 3) continue per Dr. Palencia and consultants 4) thank you Subjective Allergies: Coded Allergies: NO KNOWN ALLERGIES (Unverified Allergy, Unknown, 10/15/15) Objective Vital Signs Last 24 Hour Vital Signs Date Time Temp Pulse Resp B/P (MAP) Pulse Ox O2 Delivery O2 Flow Rate FiO2 01/18/18 12:00 98.1 84 20 114/75 97 Room Air 98.1 01/18/18 08:00 97.4 73 19 103/66 96 Room Air 97.4 01/18/18 04:00 98.0 71 20 112/67 96 98.0 01/18/18 01:07 72 107/63 Room Air 01/18/18 00:00 98.0 76 20 101/46 98 98.0 01/17/18 20:00 98.9 75 20 111/74 98 98.9 Height (Feet): 5 Height (Inches): 11.00 Weight (Pounds): 240 Microbiology Date/Time Source Procedure Growth Status 01/16/18 21:35 Blood Blood Culture - Preliminary NO GROWTH AFTER 24 HOURS Resulted 01/16/18 21:25 Blood Blood Culture - Preliminary NO GROWTH AFTER 24 HOURS Resulted 01/16/18 21:40 Urine,Clean Catch Urine Culture - Final Mixed Gram Positive Organism Complete Laboratory Tests Test 01/18/18 06:05 White Blood Count 2.8 K/UL (4.8-10.8) L Red Blood Count 4.07 M/UL (4.70-6.10) L Hemoglobin 12.6 G/DL (14.2-18.0) L Hematocrit 35.7 % (42.0-52.0) L Mean Corpuscular Volume 88 FL (80-99) Mean Corpuscular Hemoglobin 31.0 PG (27.0-31.0) Mean Corpuscular Hemoglobin Concent 35.4 G/DL (32.0-36.0) Red Cell Distribution Width 11.5 % (11.6-14.8) L Platelet Count 148 K/UL (150-450) L Mean Platelet Volume 7.2 FL (6.5-10.1) Neutrophils (%) (Auto) % (45.0-75.0) Lymphocytes (%) (Auto) % (20.0-45.0) Monocytes (%) (Auto) % (1.0-10.0) Eosinophils (%) (Auto) % (0.0-3.0) Basophils (%) (Auto) % (0.0-2.0) Differential Total Cells Counted 100 Neutrophils % (Manual) 18 % (45-75) L Lymphocytes % (Manual) 68 % (20-45) H Monocytes % (Manual) 12 % (1-10) H Eosinophils % (Manual) 2 % (0-3) Basophils % (Manual) 0 % (0-2) Band Neutrophils 0 % (0-8) Platelet Estimate Adequate Platelet Morphology Normal Anisocytosis 1+ Prothrombin Time 9.8 SEC (9.30-11.50) Prothromb Time International Ratio 0.9 (0.9-1.1) Activated Partial Thromboplast Time 26 SEC (23-33) Sodium Level 138 MMOL/L (136-145) Potassium Level 3.8 MMOL/L (3.5-5.1) Chloride Level 103 MMOL/L (98-107) Carbon Dioxide Level 29 MMOL/L (21-32) Anion Gap 6 mmol/L (5-15) Blood Urea Nitrogen 11 mg/dL (7-18) Creatinine 1.0 MG/DL (0.55-1.30) Estimat Glomerular Filtration Rate > 60 mL/min (>60) Glucose Level 105 MG/DL (74-106) Calcium Level 7.8 MG/DL (8.5-10.1) L Phosphorus Level 4.1 MG/DL (2.5-4.9) Magnesium Level 2.2 MG/DL (1.8-2.4) Total Bilirubin 0.3 MG/DL (0.2-1.0) Aspartate Amino Transf (AST/SGOT) 15 U/L (15-37) Alanine Aminotransferase (ALT/SGPT) 30 U/L (12-78) Alkaline Phosphatase 68 U/L (46-116) Total Protein 7.5 G/DL (6.4-8.2) Albumin 3.0 G/DL (3.4-5.0) L Globulin 4.5 g/dL Albumin/Globulin Ratio 0.7 (1.0-2.7) L Current Medications Medications (Trade) Dose Ordered Sig/Rodríguez Route PRN Reason Start Time Stop Time Status Last Admin Dose Admin Acetaminophen (Tylenol) 650 mg Q4H PRN ORAL fever 01/16/18 16:30 02/15/18 16:29 Al Hydroxide/Mg Hydroxide (Mylanta II) 30 ml Q6H PRN ORAL dyspepsia 01/16/18 16:30 02/15/18 16:29 Citalopram Hydrobromide (celeXA) 20 mg DAILY ORAL 01/17/18 09:00 02/16/18 08:59 01/18/18 09:30 Dextrose (Dextrose 50%) 25 ml STAT PRN IV Hypoglycemia BS 60-69 mg/dL 01/16/18 17:30 02/15/18 17:29 Dextrose (Dextrose 50%) 50 ml STAT PRN IV Hypoglycemia BS< 60 mg/dL 01/16/18 17:30 02/15/18 16:29 Dextrose/Sodium Chloride 1,000 ml @ 75 mls/hr [id number] IV 01/16/18 18:00 02/15/18 17:59 01/18/18 09:31 Diphenhydramine HCl (Benadryl) 25 mg Q6H PRN ORAL Itching/Pruritis 01/16/18 16:30 02/15/18 16:29 Divalproex Sodium (Depakote) 500 mg Q12HR ORAL 01/16/18 21:00 02/15/18 20:59 01/18/18 09:30 Heparin Sodium (Porcine) (Heparin 5000 units/ml) 5,000 units EVERY 12 HOURS SUBQ 01/16/18 21:00 02/15/18 20:59 01/17/18 21:08 Imipramine HCl (Tofranil) 25 mg Q8HR ORAL 01/18/18 15:15 02/17/18 15:14 Lorazepam (Ativan 2mg/ml 1ml) 1 mg Q4H PRN IV agitation 01/16/18 16:30 01/23/18 16:29 Morphine Sulfate (Morphine Sulfate) 0.5 mg Q4H PRN IVP Severe Pain (Pain Scale 7-10) 01/17/18 21:00 01/24/18 17:29 01/18/18 16:09 Nitroglycerin (Ntg) 0.4 mg Q5M X 3 DOSES PRN SL Prn Chest Pain 01/16/18 16:30 02/15/18 16:29 Ondansetron HCl (Zofran) 4 mg Q6H PRN IVP Nausea & Vomiting 01/16/18 16:30 02/15/18 16:29 Pantoprazole (Protonix) 40 mg DAILY IV 01/17/18 09:00 02/16/18 08:59 01/18/18 09:29 Polyethylene Glycol (Miralax) 17 gm HSPRN PRN ORAL Constipation 01/16/18 16:30 02/15/18 16:29 Risperidone (RisperDAL) 3 mg BID ORAL 01/16/18 18:00 02/15/18 17:59 01/18/18 09:30 Temazepam (Restoril) 15 mg HSPRN PRN ORAL Insomnia 01/16/18 16:30 01/23/18 16:29 Trazodone HCl (Desyrel) 50 mg BEDTIME ORAL 01/16/18 21:00 02/15/18 20:59 01/17/18 21:06 CAMRYN ROPER Jan 18, 2018 16:26
--- NOTE | 2018-01-18 16:28 | General Progress Note ---
Assessment/Plan Assessment/Plan Assessment (1) GIB (gastrointestinal bleeding) ICD Codes: K92.2 - Gastrointestinal hemorrhage, unspecified SNOMED: 19356066 (2) Gastritis ICD Codes: K29.70 - Gastritis, unspecified, without bleeding SNOMED: 3958998 (3) Behavioral change ICD Codes: R46.89 - Other symptoms and signs involving appearance and behavior SNOMED: 43981450 (4) Abdominal pain ICD Codes: R10.9 - Unspecified abdominal pain SNOMED: 84577905 Assessment/Plan advance diet ppi fu H&H GI procedure if needed Subjective Allergies: Coded Allergies: NO KNOWN ALLERGIES (Unverified Allergy, Unknown, 10/15/15) Subjective Feels OK no abdominal complaints Objective Last 24 Hour Vital Signs Date Time Temp Pulse Resp B/P (MAP) Pulse Ox O2 Delivery O2 Flow Rate FiO2 01/18/18 12:00 98.1 84 20 114/75 97 Room Air 98.1 01/18/18 08:00 97.4 73 19 103/66 96 Room Air 97.4 01/18/18 04:00 98.0 71 20 112/67 96 98.0 01/18/18 01:07 72 107/63 Room Air 01/18/18 00:00 98.0 76 20 101/46 98 98.0 01/17/18 20:00 98.9 75 20 111/74 98 98.9 Intake and Output 01/17/18 01/18/18 19:00 07:00 Intake Total 1475 ml 1625 ml Balance 1475 ml 1625 ml Intake Oral 800 ml 800 ml IV Total 675 ml 825 ml # Voids 3 3 Laboratory Tests 01/18/18 06:05: White Blood Count 2.8L, Red Blood Count 4.07L, Hemoglobin 12.6L, Hematocrit 35.7L, Mean Corpuscular Volume 88, Mean Corpuscular Hemoglobin 31.0, Mean Corpuscular Hemoglobin Concent 35.4, Red Cell Distribution Width 11.5L, Platelet Count 148L, Mean Platelet Volume 7.2, Neutrophils (%) (Auto) , Lymphocytes (%) (Auto) , Monocytes (%) (Auto) , Eosinophils (%) (Auto) , Basophils (%) (Auto) , Differential Total Cells Counted 100, Neutrophils % ( Manual) 18L, Lymphocytes % (Manual) 68H, Monocytes % (Manual) 12H, Eosinophils % (Manual) 2, Basophils % (Manual) 0, Band Neutrophils 0, Platelet Estimate Adequate, Platelet Morphology Normal, Anisocytosis 1+, Prothrombin Time 9.8, Prothromb Time International Ratio 0.9, Activated Partial Thromboplast Time 26, Sodium Level 138, Potassium Level 3.8, Chloride Level 103, Carbon Dioxide Level 29, Anion Gap 6, Blood Urea Nitrogen 11, Creatinine 1.0, Estimat Glomerular Filtration Rate > 60, Glucose Level 105, Calcium Level 7.8L, Phosphorus Level 4.1, Magnesium Level 2.2, Total Bilirubin 0.3, Aspartate Amino Transf (AST/SGOT ) 15, Alanine Aminotransferase (ALT/SGPT) 30, Alkaline Phosphatase 68, Total Protein 7.5, Albumin 3.0L, Globulin 4.5, Albumin/Globulin Ratio 0.7L Height (Feet): 5 Height (Inches): 11.00 Weight (Pounds): 240 Objective WDWN WM NCAT supple CTA RRR soft NT ND no edema nonfocal PARK ANDERSEN Jan 18, 2018 16:28
[2018-01-18] MEDS ORDERED: Imipramine 10mg tab ORAL SCH (16:41)
--- NOTE | 2018-01-19 00:30 | Consultation ---
DATE OF CONSULTATION: 01/18/2018 INFECTIOUS DISEASE CONSULTATION CONSULTING PHYSICIAN: Olivia Salomon M.D. ATTENDING PHYSICIAN: Raffaele Ledezma M.D. REFERRING PHYSICIAN: Gerry Palencia M.D., who is associated with Dr. Ledezma. REASON FOR CONSULTATION: Fevers, leukocytosis, rule out occult sepsis. HISTORY OF PRESENT ILLNESS: This is a very pleasant 32-year-old male with history of HIV. He stated he is getting antiretroviral therapy as an outpatient which includes Genvoya. The patient stated his last CD4 count was 360 and viral load undetectable, this is at least several weeks ago but I am not 100% sure. He sees a physician as an outpatient for his HIV management. The patient presents to [facility] with abdominal pain. The patient is being worked up and was seen by GI. The patient had GI bleed and it looks like gastritis in addition to the abdominal pain. The patient I think will undergo GI procedure if needed. The patient was started on PPI. Infectious Diseases consultation requested because the patient is not on antiretroviral therapy and for further management of his HIV while in the hospital. The patient stated he had been on Genvoya in the past as discussed. MAR was noted. Orders were noted. Notes were reviewed. Case was discussed with Dr. Palencia and the patient. PAST MEDICAL HISTORY: Includes history of following. As discussed earlier, he came in with GI bleed, gastritis. He has history of HIV, T-cell count which is 360, viral load undetectable per the patient. The patient's other past medical history includes history of bipolar, depression, history of appendicitis and appendectomy. No history of diabetes or hypertension. MEDICATIONS: Prior to admission include Celexa, Depakote, Genvoya, Pepcid, fluoxetine, Trileptal, Risperdal, trazodone, and Prozac. ALLERGIES: No known drug allergies. FAMILY HISTORY: Noncontributory. Negative for exposure to tuberculosis or cancer. SOCIAL HISTORY: Negative for smoking, alcohol, or drug abuse. REVIEW OF SYSTEMS: CONSTITUTIONAL: The patient has generalized fatigue but no focal weakness. No fever, chills, night sweats, or weight loss. HEAD AND NECK: No head pain, thrush, dysphagia, or sinus tenderness. CARDIAC: No chest pain or palpitations. GASTROINTESTINAL: He came in with abdominal pain and GI bleed as discussed. He did come in with flank pain also. GENITOURINARY: No dysuria or frequency. PULMONARY: No congestion, shortness of breath, hemoptysis, secretions. No cough. SKIN: No rash or itching. EXTREMITIES: No extremity pain. NEUROLOGIC: No seizures. PHYSICAL EXAMINATION: VITAL SIGNS: Temperature is 98.1, pulse rate 84, respiratory rate 20, blood pressure 114/75, and saturation 97%. GENERAL: Alert and responsive, in no acute distress. HEAD AND NECK: Oral exam, no thrush. Eye exam, no icterus. Normocephalic. No facial droop. No neck stiffness. Neck is supple. HEART: Regular. No gallop or murmur. ABDOMEN: Soft. Positive bowel sounds. Nontender. No CVA tenderness. LUNGS: Clear bilaterally. No rhonchi or rales. SKIN: No rash. MUSCULOSKELETAL: No effusion. Legs are without cellulitis. PERIPHERAL VASCULAR: No cyanosis or gangrene. GENITOURINARY: No Holley. LINE SITES: Without phlebitis. NEUROLOGIC: Intact. Nonfocal. LABORATORY AND DIAGNOSTIC DATA: White count 2.8, hemoglobin 12.6, and platelet count 148,000. Creatinine is 1.0. UA was 0 to 2 white blood cells. Imaging studies, abdominal ultrasound was negative. Chest x-ray showed no acute process. ASSESSMENT AND PLAN: 1. The patient has HIV per the patient's records and history. He has CD4 count of 360 and viral load to be undetectable. The patient is seeing HIV physician in the outpatient setting. At this time, he is currently not on antiretroviral therapy. In the hospital, he has been on Genvoya prior. I discussed with pharmacy here at [facility] and we do not have the Genvoya or all the components of Genvoya. I discussed with nursing staff for the patient to get his home medication because we do not want to give partial therapy because of the chances of increased resistance. In addition, the patient does have leukopenia which could be suggestive of the patient's antiretroviral therapy is not working or it is unclear if he has been compliant. In addition to this, we will have the patient take Genvoya from home since we do not have that available, all the components. We will get CD4 count and viral load to see the patient's immune status and viral load. 2. Abdominal pain, gastritis, and possible GI bleed. Treatment per GI. 3. Bipolar disease. 4. History of appendicitis and appendectomy. 5. The patient has anemia. 6. Also history of depression it looks like. 7. History of flank pain. 8. Nausea and vomiting. 9. Past medical history noted. 10. No known allergies. 11. Social history negative. 12. Family history noncontributory. 13. MAR was noted. 14. Case discussed with RN. 15. Case discussed with Dr. Palencia. 16. Case discussed with pharmacy. 17. Case discussed with the patient. 18. Continue treatment per primary consultants. 19. Notes and records were noted. 20. Orders were noted and entered, and communicated with nursing staff. Olivia Salomon M.D. DR: Hayden JOB#: [id number] CC:
--- NOTE | 2018-01-20 07:49 | Discharge Summary ---
Discharge Summary Discharge Summary Discharge Summary DATE OF ADMISSION: 01/16/2018 DATE OF DISCHARGE: 01/18/2018 REASON FOR ADMISSION: 32 years old male with a history of bipolar depression and HIV, presented to emergency department with complaint of abdominal pain and hematemesis. Patient also reported worsening headaches. Vital signs were stable, except initial tachycardia .EKG showed sinus tachycardia, but no acute ischemic changes. Troponin was negative. CT head revealed no evidence of acute intracranial hemorrhage, mass effect or cortical edema. Urine tox screen was positive for marijuana. Laboratory workup revealed stable hemoglobin and hematocrit, no leukocytosis. Stable LFT and electrolytes. Urinalysis with no evidence of UTI. Chest x-ray revealed no evidence of acute cardiopulmonary disease. Patient was given IV fluids, IV Protonix, antiemetic, and was medicated for headache. Patient was admitted with diagnosis of gastritis, abdominal pain, hematemesis, HIV status, bipolar depression. CONSULTANTS: pulmonary/critical care -d Dr. Lennon ID specialist- dr Salomon GI specialist- HOSPITAL COURSE: Patient admitted to medical surgical floor. Patient was started on IV fluids and GI prophylaxis. Abdominal ultrasound revealed unremarkable gallbladder, without stones, wall thickening, no pericholecystic fluid. No be very ductal dilatation. Liver demonstrated normal echogenicity no focal abnormalities. Chest was unremarkable. Both kidney demonstrated normal echogenicity. No hydronephrosis. GI closely follow. Patient was on PPI and symptomatic treatment with antiemetics as needed. Hemoglobin and hematocrit were closely monitored. Diet was advanced as tolerated. GI recommended GI procedure as needed but no need at this time, since stable hemoglobin and hematocrit ,and no further evidence of hematemesis. ID specialist closely followed for HIV disease. Per patient, HIV was diagnosed in 2004. Latest HIV viral load was undetectable, as per patient, and CD4 count was 360. The patient was seeing HIV physician in the outpatient setting. Prior in the hospital patient was given Genvoya, which pharmacy did not have at this time. ID recommended for patient to start home medication for HIV, since he did not want to give partial therapy due to the chances of increased resistance. Pain management was provided and was controlled. Antiemetic given as needed. Patient was able to tolerate diet, no further episodes of hematemesis. Hemoglobin and hematocrit remained stable. DVT prophylaxis provided. Psychiatric medication regimen was continued from home. Patient was stable for discharge home FINAL DIAGNOSES: Hematemesis Abdominal pain GI bleeding Gastritis HIV disease Bipolar depression DISCHARGE MEDICATIONS: See Medication Reconciliation list. DISCHARGE INSTRUCTIONS: Patient was discharged home. Follow up with primary care provide in one week. Patient to follow-up with outpatient HIV provider. I have been assigned to dictate discharge summary for this account. I was not involved in the patient's management. Charli (Machellecristian,Indigo DESIR Jan 20, 2018 07:49
== END 2018-01-18 17:40 | disposition home or self-care (01) | DRG 253 ==
LOC: EDBD 12:34 → EMR 13:05 → 4E 14:35 → EDBEDREQ 15:09
DX: K92.2 Gastrointestinal hemorrhage, unspecified (principal); B20 Human immunodeficiency virus [HIV] disease; R10.9 Unspecified abdominal pain; K29.70 Gastritis, unspecified, without bleeding; D64.9 Anemia, unspecified; F31.89 Other bipolar disorder
CPT/HCPCS: 36415; 70450; 71045; 76700; 80053; 80307; 80329; 81001; 82150; 83690; 83735; 84100; 84484; 85007; 85025; 85610; 85730; 86850; 86900; 86901; 87040; 87086; 99285